=== PATIENT | male | born 1940 | race Caucasian/White ===

== ENCOUNTER 2017-02-23 20:54 | Inpatient (IN) ==
[2017-02-23] MEDS ORDERED: NS 1,000 ML IV ONE ×2 (21:27→22:33)
[2017-02-23] MEDS ORDERED: MORPHINE IV ONE ×2 (21:27→22:39)
[2017-02-23] MEDS ORDERED: ZOFRAN IV ONE (21:27)
[2017-02-23 21:30] LABS: BASO% 0.1 % (0.0-0.8); EOS# 0.01 X1000 (0.0-0.7); HEMOGLOBIN 15.7 g/dL (14.0-18.0); IMM GRAN# 0.16 X1000 (0.0-0.04); IMM GRAN% 0.5 % (0.0-0.5); LYMPH% 3.7 % (20.5-51.1); MANUAL DIFF NEEDED? NO; MCH 32.5 PG (27-31); MCHC 34.9 g/dL (33-37); MCV 93.2 FL (81-99); MONO# 3.61 X1000 (0.11-0.59); MONO% 12.3 % (1.7-9.3); NEUT% 83.4 % (42.2-75.2); PLT 309 X1000 (130-400); RBC 4.83 XMIL (4.7-6.1)
[2017-02-23 21:45] LABS: ALBUMIN 3.4 g/dL (3.5-5.0); CALCIUM 9.1 mg/dL (8.8-10.2); POTASSIUM 4.2 mmol/L (3.5-5.1); TOTAL BILIRUBIN 0.72 mg/dL (0.20-1.00); TOTAL PROTEIN 6.6 g/dL (6.3-8.3)
[2017-02-23] MEDS ORDERED: FLAGYL 500 MG/NS 500 MG/100 ML IVPB IV ONE (22:32)
[2017-02-23] MEDS ORDERED: LEVAQUIN 750 MG/D5W 750 MG/150 ML IVPB IV ONE (22:32)
--- NOTE | 2017-02-23 22:35 | PROVIDER DOCUMENTATION ---
This chart was entered by Clif Bai Scribe, acting as scribe for Zev Reed MD. HPI-Abdominal Pain/GI Problem - General Chief Complaint: Syncope Stated Complaint: syncope Time Seen by Provider: 02/23/17 21:12 Source: patient Allergies/Adverse Reactions: Patient Allergies Allergy/AdvReac Type Severity Reaction Status Date / Time Penicillins AdvReac Unknown Verified 02/23/17 21:17 Home Medications: Home Medication List Medication Instructions Recorded Confirmed Last Taken Type Aspirin 81 mg PO DAILY 10/19/15 02/23/17 02/22/17 History Benazepril/Hydrochlorothiazide 1 each PO DAILY 10/19/15 02/23/17 02/22/17 History [Benazepril-Hctz 20-12.5 mg Tab] Donepezil [Aricept] 10 mg PO DAILY 10/19/15 02/23/17 02/22/17 History Meclizine [Antivert] 25 mg PO DAILY 10/19/15 02/23/17 02/22/17 History Metoprolol [Lopressor] 50 mg PO DAILY 10/19/15 02/23/17 02/22/17 History Tiotropium Bowie Inhaler 1 puff INH RTDAILY 10/19/15 02/23/17 02/22/17 History [Spiriva] Clopidogrel Bisulfate [Plavix] 75 mg PO DAILY 02/23/17 02/23/17 02/22/17 History - History of Present Illness-ABD Nature of Presenting Problems: Pt is a 76 yom who presents to ER via EMS after several syncopal episodes today. On exam, pt revealed a 2 days hx of abdominal pain with N/V that did not resolve until 0400 today. Pt complains of N/V, abdominal distention, inability to retain fluids, and states pain is worse when coughing. Abdominal Pain Onset Location: reports: generalized abdomen Pain Radiation: reports: no radiation Quality of Pain: reports: aching, cramping, pressure, throbbing Severity in ED: reports: moderate, severe Onset/Duration: reports: 2 days ago Timing: reports: still present Associated Symptoms: reports: diaphoresis, fatigue, fever/chills (chills without fever), loss of appetite, nausea, shortness of breath (increased sob today), vomiting, weakness. denies: anxiety, arm pain, back/neck pain, chest pain, constipation, cough, diarrhea, EENT symptoms, genitourinary problems, headaches, heartburn, joint pain, trouble walking Last BM: unsure Dark Stools Present?: reports: none noticed Rectal Bleeding: reports: none Rectal Pain: reports: none Emesis Description: reports: none Review of Systems - Adult - REVIEW OF SYSTEMS - ADULT Constitutional: reports: chills, fatique. denies: fever, night sweats, weight gain, weight loss Eyes: reports: no symptoms reported Ears, Nose, Mouth & Throat: reports: no symptoms reported Cardiovascular: denies: chest pain, edema, heart murmur, irregular heart rate, orthopnea, palpitations, poor circulation, PND, syncope Respiratory: reports: shortness of breath. denies: chronic cough, cough, dyspnea on exertion, excessive sputum production, hemoptysis, pleurisy, wheezing Gastrointestinal: reports: abdominal pain, nausea, poor appetite, vomiting, other (distended). denies: hematemesis, constipation, diarrhea, difficulty swallowing, frequent heartburn, rectal bleeding Genitourinary: reports: no symptoms reported Musculoskeletal: reports: no symptoms reported Integumentary: reports: no symptoms reported Neurological: reports: no symptoms reported Psychiatric: reports: no symptoms reported Endocrine: reports: no symptoms reported Hematologic/Lymphatic: reports: no symptoms reported Allergic/Immunologic: reports: no symptoms reported All Other Systems: Reviewed and Negative Past History - Adult - PAST MEDICAL HISTORY-ADULT Review of Records: reports: Nursing Assessment Review, Medications Reviewed Cardiovascular: reports: HTN - IMMUNIZATION STATUS Childhood Immunizations: See Nurse Assessment Flu Vaccine: See Nurse Assessment Physical Exam-General - PHYSICAL EXAM-ADULT Initial Vital Signs Reviewed: Yes - CONSTITUTIONAL General Appearance: appears well, alert, mild distress, anxious - EYES Eyes: PERRL/EOMI, pink conjunctivae - HEAD, EARS, NOSE, MOUTH & THROAT HENMT: normocephalic/atraumatic, moist mucous membranes, normal ENT inspection - NECK Neck: non-tender, full range of motion, supple, normal inspection. negative: C- spine tenderness, limited range of motion, lymphadenopathy - RESPIRATORY Respiratory: chest non-tender, lungs clear, normal breath sounds, no pleuratic chest pain, no respiratory distress, no accessory muscle use. negative: respiratory distress - CARDIOVASCULAR Cardiovascular: normal peripheral pulses, regular rate, rhythm, tachycardia, other (hypotensive (99/82)). negative: bradycardia, irregularly irregular - GASTROINTESTINAL (ABDOMEN) Abdominal Exam: distended, tenderness (generalized). negative: non tender - MUSCULOSKELETAL Back Exam: normal inspection, no CVA tenderness, no vertebral tenderness. negative: CVA tenderness, muscle spasm, swelling, vertebral tenderness Extremity: normal range of motion, non-tender, normal gait, normal inspection, no pedal edema, no calf tenderness, normal capillary refill. negative: deformity, erythema, inflammation, swelling, tenderness - SKIN Integumentary: normal color, normal turgor, warm/dry. 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 negative: facial droop, focal weakness, motor weakness, sensory deficit - PSYCHIATRIC Psych/Mental Status: normal mood/affect, normal thought content, normal thought process, oriented x 3, anxious Progress - PLAN OF CARE/RESULTS Progress/Plan/Lab Results: Vital Signs - 8 hr 02/23/17 21:10 Temperature 97.4 F L Pulse Rate 112 H Respiratory Rate 21 Blood Pressure 94/69 O2 Sat by Pulse Oximetry 97 Orders Category Date Time Status CBC WITH ELECTRONIC DIFF [HEME] Stat Lab 02/23/17 21:12 Results CMP [COMPREHENSIVE METABOLIC PANEL] [CHEM] Stat Lab 02/23/17 21:12 Received Ddimer [D-DIMER] [CHEM] Stat Lab 02/23/17 21:12 Received LIPASE [CHEM] Stat Lab 02/23/17 21:12 Received TROPONIN T Stat Lab 02/23/17 21:12 Received EKG [EKG] Stat Ther 02/23/17 21:13 Ordered Result Diagrams: 02/23/17 21:12 02/23/17 21:12 - EKG 1 Time of EKG reading by physician:: 20:59 EKG Read and Signed by:: Zev Reed EKG Interpretation (*Must complete 3 of following elements*): Abnormal (RBBB; T wave abnormality, consider inferior ischemia) Rate: 122 Rhythm: Sinus tachycardia with PAC - XRAY 1 XRAY: Bilateral XRAY Study: Abdomen Impression: See EMR Report XRAY Interpretation: Possible small bowel obstruction - ER Preliminary - CONSULTS/PCP/HOSPITALIST Notification #1 *Consult/PCP/Hospitalist*: Dr. Gonzalez (Surgeon) Time Discussed: 22:30 Consult Disposition: Admit Departure - Departure Time of Disposition Decision: 22:31 DIAGNOSIS: Perforated viscus Disposition: ADMITTED INPATIENT 09 Certified Medical Emergency: Emergent Condition: Stable Referrals and Follow-Ups: Hamida English MD [Primary Care Provider] - - Critical Care Note This patient required my direct & personal management of CC.: Yes Total Time (mins): 60 Critical Care Statement: This patient required my direct personal management to treat or rule out processes, the absence of which, could potentiallly result in sudden, clinically significant life or limb threatening deterioration. This chart was documented by the indicated scribe, (Clif Bai Scribe) and accurately reflects the services I performed and decisions made by me, Zev Fatima MD, as attested by the provider's signature.
[2017-02-23] MEDS ORDERED: OFIRMEV 1000 MG/ISOTONIC SOLN 1,000 MG/100 ML BOTTLE IV ONE (22:39)
[2017-02-23] MEDS ORDERED: LEVOPHED 8 MG in D5 1/2 NS 250 ML IV SCH (23:00)
--- NOTE | 2017-02-24 00:32 | HISTORY AND PHYSICAL ---
DATE OF ADMISSION: 02/24/2017 HISTORY OF PRESENT ILLNESS: This is a 76-year-old male with a history of critical aortic stenosis, who presents with acute onset of nausea, vomiting, abdominal pain that started around 6 p.m. this last evening, prompting admission to the emergency department. He was tachycardic when he came in, with some marginal blood pressures. He started fluid resuscitation. CT scans showed a large amount of free intraperitoneal fluid, no free air, and some questionable pneumatosis. Lactic acid was 10. He states that he has been in the usual state of health until this time. PAST MEDICAL HISTORY: 1. Coronary artery disease. 2. Tobacco abuse, likely COPD. 3. Critical aortic stenosis that has not been repaired yet. 4. Hypertension. 5. Hyperlipidemia. 6. Peripheral vascular disease. 7. Carotid artery disease. 8. Dementia. PAST SURGICAL HISTORY: He has had an inguinal hernia repair. SOCIAL HISTORY: Quit smoking approximately 6 months ago. Denies alcohol abuse. No IV drugs. FAMILY HISTORY: Negative for cancer. REVIEW OF SYSTEMS: Ten-point negative, other than what is mentioned in the HPI. PHYSICAL EXAMINATION: Vital Signs: Temperature is 97.4 degrees. Pulse is 110s, 113 currently. Blood pressure 109/75, oxygen saturation 93% on room air. He is 5 feet 8 inches, and 125 pounds. General: This is an elderly, chronically ill-appearing white male, somewhat cachectic. Cardiovascular: Sinus tachycardia. There is no median sternotomy scar. Pulmonary: No increased work of breathing. He is stable on room air. Abdomen: Distended, is rigid. There is willis peritonitis and in all quadrants. I do not feel any inguinal hernia. There is no umbilical hernia. He had what appeared to be coffee-ground emesis while I was examining him. I do not see any prominent abdominal wall varicosities. A 2+ left radial pulse. Otherwise, the extremities are well-perfused. No lower extremity edema. Skin: There is no scleral icterus, and there is no jaundice noted on skin exam. Musculoskeletal: Does have some muscle atrophy throughout. LABORATORY STUDIES: White count is 29, hematocrit 45, platelets are 309. D-dimer is 4.83. Sodium is 130, creatinine is 1.7. Glucose 288. Bilirubin is 0.72, AST 16, ALT 11, alkaline phosphatase 72, albumin is 3.4, lactic acid is 10.5, lipase 11. Troponins are 0.021. ASSESSMENT AND PLAN: This is a 76-year-old male who presents with CT and exam findings concerning for ischemic bowel. He has willis peritonitis and a moderate amount of free fluid. Given exam and all of these constellation of findings, I have recommended exploratory laparotomy. We discussed the possibility of bowel resection, the possibility of temporary abdominal closure, the possibility of colostomy, and all indicated procedures to correct his current problem. He understands that he is at significant risk, given his severe cardiac disease. He takes Plavix. We will accept the risk of bleeding obviously for this emergent situation. His severe aortic stenosis has not been repaired, and coronary disease as well. I spoke with him in detail about the plans of surgery. Both his daughter and his sister are here with him. They understand and consent to the procedure and want to proceed. We discussed the possibility that he could require a second-look operation, and be temporary closed and remain intubated tonight. He has received IV antibiotics. Currently, we will place an NG tube and a Zeng catheter. Plan to place a central line and an arterial line at the time of surgery, and he will most definitely need ICU after this. cc: Adriana Gonzalez MD
[2017-02-24] MEDS ORDERED: DIPRIVAN 1% 1,000 MG/100 ML BOTTLE ONE (01:40)
[2017-02-24 02:13] LABS: ALLEN TEST YES; BE -4.1 mmoll (-3.0-3.0); BLOOD TYPE ARTERIAL; DRAW SITE R RADIAL; METHB 1.7 % (0.0-1.5); O2(CT) 16.8 mL/dL (15.0-23.0); PCO2(98.6) 47 mmHg (35-45); PO2(98.6) 120 mmHg (60-100); SAMPLE BLOOD; SAO2 99.5 % (95.0-100.0); SRATE 14 BPM; THB 12.3 g/dL (11.5-17.4); TVOL 600 mL; pH(98.6) 7.29 (7.35-7.45)
[2017-02-24 02:14] LABS: MODALITY VENTILATOR
[2017-02-24] MEDS: DIPRIVAN 1% 1,000 MG/100 ML BOTTLE IV SCH ×4 (02:30→22:07)
[2017-02-24] MEDS ORDERED: FENTANYL ONE (02:47)
[2017-02-24] MEDS ORDERED: VERSED ONE (02:47)
[2017-02-24] MEDS: LR 1,000 ML IV SCH ×3 (03:00→18:17)
[2017-02-24] MEDS ORDERED: SODIUM CHLORIDE 0.9% INJ ONE (03:02)
[2017-02-24 03:37] LABS: MANUAL DIFF NEEDED? NO
[2017-02-24 03:41] LABS: BASO% 0.1 % (0.0-0.8); EOS# 0.01 X1000 (0.0-0.7); EOS% 0.1 % (0.0-10.0); HEMATOCRIT 34.9 % (42.0-52.0); HEMOGLOBIN 12.3 g/dL (14.0-18.0); IMM GRAN# 0.03 X1000 (0.0-0.04); IMM GRAN% 0.2 % (0.0-0.5); LYMPH# 0.71 X1000 (1.2-3.4); LYMPH% 4.8 % (20.5-51.1); MCH 32.8 PG (27-31); MCHC 35.2 g/dL (33-37); MCV 93.1 FL (81-99); MONO% 12.9 % (1.7-9.3); MPV 10.1 FL (7.4-10.4); NEUT% 81.9 % (42.2-75.2); PLT 200 X1000 (130-400); RBC 3.75 XMIL (4.7-6.1)
[2017-02-24 03:48] LABS: INR 1.08; PROTIME 11.4 Seconds (9.2-11.7); PTT 30.3 Seconds (22.0-36.0)
[2017-02-24 03:55] LABS: AGAP 13; BUN 29 mg/dL (8-22); CALCIUM 7.1 mg/dL (8.8-10.2); CHLORIDE 100 mmol/L (98-107); COSMO 273; POTASSIUM 4.6 mmol/L (3.5-5.1); SODIUM 133 mmol/L (136-145); TCO2 20 mmol/L (25-35)
--- NOTE | 2017-02-24 04:23 | OPERATIVE NOTE ---
PROCEDURE DATE: 02/24/2017 PREOPERATIVE DIAGNOSES: 1. Bowel ischemia. 2. Small bowel ischemia. PROCEDURES PERFORMED: 1. Exploratory laparotomy. 2. Small bowel resection of 105 cm of distal small bowel. 3. Right femoral central line placement. 4. Temporary abdominal closure. ESTIMATED BLOOD LOSS: 100 mL. SPECIMENS: Distal small bowel. DRAINS: None. ANESTHESIA: General. INDICATIONS: This is a 76-year-old male who presented with approximately 4 or 5 hours of severe nausea, vomiting, and severe diffuse abdominal pain. CT scan showed a high-grade bowel obstruction with pneumatosis. He had willis peritonitis on exam. Lactic acidosis of 10.5. He also has a history of critical aortic stenosis and was in atrial fibrillation on arrival. OPERATIVE FINDINGS: There was 105 cm of frankly necrotic small bowel spanning up to within about 4 cm of the ileocecal valve. There was no evidence of perforation but there was a large volume of hemorrhagic ascites within the abdomen. The liver was slightly nodular but it was soft. The gallbladder appeared chronically inflamed with thickened noel. The stomach was normal. The proximal small bowel to the level of demarcation was very dilated. There were some areas that were dusky but no willis necrosis noted. The colon, ascending, transverse, descending, and rectum were all well perfused and decompressed. There was a strong pulse within the SMA. It was calcified but there was a strong pulse here. There was good Doppler signal noted in the distal small bowel mesentery. There was also a Doppler signal audible over the small bowel mucosa. OPERATIVE NOTE: Risks, benefits, and alternatives were discussed. The patient and family consented to the procedure. He was seen in the preoperative area. Surgery to be performed was confirmed. He was taken to the operating room, placed in the supine position. An arterial line was placed with anesthesia prior to induction of anesthesia. He had a Zeng catheter and NG tube already in place. Scheduled antibiotics were being administered. After induction of general anesthesia, there were no complications, abdomen was prepped down to the level of his groins with chlorhexidine solution, draped in the usual fashion. After time-out was performed, we placed a pre-flushed 7-Croatian triple lumen central line in the right femoral vein. We palpated the artery and accessed the vein medially on the first pass. Dark nonpulsatile venous blood was noted. We threaded the guidewire, removed the needle, made a skin bria, dilated the tract, and placed the catheter using Seldinger technique. We removed the wire, placed sterile Luer Lock caps. All ports withdrew blood and flushed easily. We secured it with a silk suture and excluded this from the field. We passed all sterile tubing to anesthesia and they used this through the case. At this point, we made a xiphoid, pubic incision down the midline. Carried it with electrocautery down to the fascia and the fascia along the midline elevated, the peritoneum entered sharply. There was no plummer of air noted but there was quite a lot amount of hemorrhagic ascites. We extended our incision cephalad and inferiorly. There was frankly necrotic bowel noted. We eviscerated all the small intestine and ran it from the ligament of Treitz distally to the ileocecal valve, identifying the areas of demarcation. There was a single omental band to this area. It was unclear if this was causing a volvulus type picture or if this was most likely a cardioembolic source causing necrosis. However, there was evidence of thrombosis of the vessels within the mesentery. This was all frankly necrotic. Using the JULIANE blue load stapler, we divided proximally and distally, and passed this off as specimen. We then divided the mesentery with a LigaSure Impact device. There was no bleeding noted here. We ran the bowel, milking the enteric contents back to the stomach to be decompressed by the NG tube. We confirmed its position and we examined the colon. After satisfactory that we had good source control and resected all the frankly necrotic bowel, we copiously irrigated the abdomen with warm saline. We evaluate for possible anastomosis but the patient was becoming hypothermic with a temperature of 35 degrees Celsius. He was acidotic in the emergency department. Urine output was marginal. He was not requiring vasopressors but we elected to temporarily close his abdomen and come back for 2nd look to re-evaluate the areas of the proximal small bowel that were of concern and to create a formal anastomosis. This most likely will require an ileal cecectomy to create a small bowel to ascending colon anastomosis. There was a good pulse noted within the right colon mesentery also. We placed omentum down covering the bowel after placing it back into the neutral position. The NG tube was in good position. We placed a 10-10 drape over the abdominal contents and closed the skin with a running #1 Prolene suture, applied gauze and Medipore tape dressing. He tolerated the procedure relatively well. Was transferred to ICU for ongoing resuscitation. I had spoken with the family. I plan to go back to the operating room in 24 hours after his resuscitation for a 2nd look and establishment of continuity. Counts were correct at the conclusion of the case with the exception of the 10-10 drape that was intentionally left in the abdomen. cc: MD Salvatore Márquez MD
[2017-02-24 04:50] LABS: ALLEN TEST YES; BE -0.7 mmoll (-3.0-3.0); BLOOD TYPE ARTERIAL; O2(CT) 17.5 mL/dL (15.0-23.0); PCO2(98.6) 35 mmHg (35-45); PO2(98.6) 160 mmHg (60-100); SAMPLE BLOOD; SAO2 96.1 % (95.0-100.0); SRATE 14 BPM; THB 12.8 g/dL (11.5-17.4); TVOL 600 mL; pH(98.6) 7.43 (7.35-7.45)
[2017-02-24 04:51] LABS: MODALITY VENTILATOR
[2017-02-24] MEDS: LOPRESSOR IV SCH ×4 (05:29→19:34)
[2017-02-24] MEDS: FLAGYL 500 MG/NS 500 MG/100 ML IVPB IV SCH ×4 (05:52→23:58)
[2017-02-24 06:37] LABS: DRAW SITE R RADIAL
--- NOTE | 2017-02-24 06:42 | EKG Report ---
Test Performed on : 02/23/2017 8:59:18 PM Test Reason : SYNCOPE Blood Pressure : / mmHG Vent. Rate : 122 BPM Atrial Rate : 153 BPM P-R Int : 140 ms QRS Dur : 134 ms QT Int : 368 ms P-R-T Axes : 050 066 033 degrees QTc Int : 524 ms Sinus tachycardia. with premature atrial complexes. Right bundle branch block T wave abnormality, consider inferior ischemia Abnormal ECG When compared with ECG of 23-OCT-2015 08:26, premature atrial complexes. are now present Vent. rate has increased BY [address] now depressed in Anterior leads T wave inversion now evident in Anterior leads Unconfirmed Result
[2017-02-24] MEDS ORDERED: SODIUM CHLORIDE 0.9% 10 ML ONE ×2 (07:48→19:40)
[2017-02-24] MEDS ORDERED: LEVOPHED 8 MG in D5 1/2 NS 250 ML IV SCH (08:00)
[2017-02-24] MEDS ORDERED: CALCIUM GLUCONATE IV PUSH ONE (08:08)
[2017-02-24] MEDS: LEVOPHED 8 MG in D5 1/2 NS 250 ML IV SCH ×3 (08:09→23:58)
[2017-02-24] MEDS: PROTONIX IV SCH ×2 (08:10→20:05)
--- NOTE | 2017-02-24 08:51 | Diag Imaging Result Document ---
PROCEDURE NAME: FLAT/UPRIGHT ABD/1 VIEW CHEST - 02/23/2017 FRONTAL CHEST X-RAY AND 2 VIEWS OF THE ABDOMEN: COMPARISON: None. FINDINGS: There is some ill-defined reticulonodular infiltrate in the right upper lobe laterally. Heart size is top normal. No new pneumothorax or significant effusion. There are several abnormally gas-distended loops of small bowel in the abdomen measuring up to 4.4 cm. No colon or rectal gas. IMPRESSION: 1. Slight infiltrate in the right upper lobe, nonspecific. 2. High-grade small bowel obstruction.
--- NOTE | 2017-02-24 08:52 | Diag Imaging Result Document ---
PROCEDURE NAME: CHEST-PORTABLE - 02/23/2017 PORTABLE CHEST X-RAY AT 2330 HOURS: COMPARISON: 2135 hours. FINDINGS: There is a new nasogastric tube with the tip in the stomach. Stable small infiltrate in the right upper lobe. IMPRESSION: Good nasogastric tube placement.
--- NOTE | 2017-02-24 08:52 | Diag Imaging Result Document ---
PROCEDURE NAME: CHEST-PORTABLE - 02/24/2017 PORTABLE CHEST X-RAY: COMPARISON: 02/23/2017 at 2330 hours. FINDINGS: There is an endotracheal tube and nasogastric tube in good position. Stable small right upper lobe infiltrate. There is mild retrocardiac consolidation/atelectasis which has worsened since prior. IMPRESSION: See findings.
--- NOTE | 2017-02-24 09:00 | Diag Imaging Result Document ---
PROCEDURE NAME: ABDOMEN/PELVIS W/O CONTRAST - 02/23/2017 CT OF THE ABDOMEN WITHOUT CONTRAST: COMPARISON: There are no previous studies available for comparison. FINDINGS: There is ill-defined opacity with air bronchogram posteriorly in the left lower lobe which does not extend beyond 4 cm in size. There are additional foci of somewhat nodular opacity present inferior to this in the posteromedial left lower lobe. There are linear opacities in both costophrenic sulci which may be due to fibrosis or atelectasis. The possibility of mild pneumonia should be considered. There is ascites. The spleen contains granulomata but is not enlarged measuring less than 9.3 cm in transverse dimension. There is bilateral adrenal hyperplasia. There appears to be at least one small stone layering dependently in the gallbladder as well as some sludge. There are granulomata in the liver. The liver is slightly nodular in contour suggesting cirrhosis. There is no evidence of stones or hydronephrosis in the kidneys. There is stool and gas in the colon without evidence of dilatation. There are multiple small bowel loops demonstrating marked dilatation. There appears to be a transitional zone in the distal ileum. There is no evidence of free intra-abdominal or pelvic gas. The urinary bladder is not distended. There are a few scattered diverticula in the colon. There is extensive atherosclerotic calcification in the aorta and its branches including the proximal superior mesenteric artery and both renal arteries. There are severe degenerative disk changes in the lumbar spine. IMPRESSION: Small bowel obstruction. Ascites. Left lower lobe pneumonia vs pneumonitis.
[2017-02-24] MEDS ORDERED: NIMBEX 2 MG DOSE ONE (09:03)
[2017-02-24] MEDS ORDERED: NS 1,000 ML ONE (09:03)
[2017-02-24] MEDS ORDERED: EXTENSION SET 32 IN 4522 ONE (09:03)
[2017-02-24] MEDS ORDERED: NS 500 ML ONE (09:03)
[2017-02-24] MEDS ORDERED: BLOOD SET Y-TYPE 8949 ONE (09:03)
[2017-02-24] MEDS ORDERED: ANESTHESIA PB SET 88 IN 5742 ONE (09:03)
[2017-02-24] MEDS ORDERED: SODIUM CHLORIDE 0.9% 20 ML ONE (09:03)
[2017-02-24] MEDS ORDERED: LR 3,000 ML ONE (09:03)
[2017-02-24] MEDS ORDERED: QUELICIN (DOSE) ONE (09:03)
[2017-02-24] MEDS ORDERED: NEO-SYNEPHRINE ONE (09:03)
[2017-02-24] MEDS ORDERED: AMIDATE ONE (09:03)
[2017-02-24] MEDS ORDERED: XYLOCAINE-MPF 2% ONE (09:03)
[2017-02-24] MEDS: FENTANYL IV PRN ×6 (09:32→22:08)
[2017-02-24] MEDS ORDERED: SODIUM BICARBONATE 8.4% 150 MEQ in D5W 1,000 ML IV SCH (10:02)
[2017-02-24] MEDS: DUONEB (A & A) INH SCH ×4 (11:35→22:42)
--- NOTE | 2017-02-24 14:05 | CONSULTATION ---
DATE OF CONSULTATION: 02/24/2017 REASON FOR CONSULTATION: Cardiology was consulted for atrial fibrillation, aortic stenosis. The patient is a 76-year-old gentleman who is intubated and sedated. History was obtained from the chart. Patient came with nausea, vomiting, and was admitted to the emergency room. He was tachycardic and started with fluid resuscitation. CT scan showed large amount of intraperitoneal fluid. Patient a small-bowel ischemia and the procedure performed was exploratory laparotomy with small-bowel resection of 105 cm distal bowel. Patient is on pressors of Levophed. His heart rate is irregular at 120-100 beats per minute, atrial fibrillation. REVIEW OF SYSTEMS: Could not be obtained from the patient. PAST MEDICAL HISTORY: 1. Critical aortic stenosis. Patient in the past had refused surgery and was deemed not a good surgical candidate for TAVR This was in 2016. Evaluated at [facility]. 2. Chronic obstructive pulmonary disease. 3. Hypertension. 4. Dementia. 5. Tobacco abuse with 50 pack history of smoking. 6. Diabetes. 7. Hypercholesterolemia. HOME MEDICATIONS: Had included aspirin, Plavix, lisinopril 10, metoprolol 25, Synthroid 125, Glucophage 500, Lipitor 80, and multivitamins. This is from 12/27/2015 when he had seen Cardiology in [place]. ALLERGIES: He is allergic to penicillin. PHYSICAL EXAMINATION: Vital Signs: Blood pressure was 95/68, heart rate 120. Neck: Jugular sinus pressure could not be assessed. Cardiovascular: First and second heart sounds were heard. There is ejection systolic murmur. Respiratory System: Bibasilar wheeze. Abdomen: Recent surgery. Central nervous System: Could not be assessed. ASSESSMENT AND PLAN: Mr. Connor Mac is a 76-year-old, gentleman with severe aortic stenosis, chronic obstructive pulmonary disease, hypertension, diabetes, and hypercholesterolemia, who is at admitted with an acute abdomen. Underwent small bowel resection for ischemic bowel. His electrocardiogram revealed atrial fibrillation. He is on pressors at the present time. RECOMMENDATIONS: 1. He had an echocardiogram. We will look at that shortly. 2. His admission electrocardiogram revealed atrial fibrillation and probably the ischemic bowel may have been given a clot to the small bowel causing his problems. Regardless, for rate control at the present time, we will give him digoxin 0.25 mg IV and replete that and put him on digoxin 0.125 on a daily basis. 3. He needs to be anticoagulated. At discharge we will plan on that; however, we cannot as he underwent surgery. 4. As far as aortic stenosis is concerned, he has been evaluated and there was no discharge diagnosis of atrial fibrillation from [place] last year; however, this atrial fibrillation may have been ongoing. I do not have another electrocardiogram to compare that to in the last 6 months up to a year. As far as aortic stenosis concerned, we will continue with his current home medications/ 5. His hypertensive medications held because of hypotension at the present time. Diabetes management per blood sugar values. Thank you for the consult. We will follow hospital course. 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 He is also on antibiotics for pneumonia. I had a detailed discussion with patient's family as well. Thank you for the consult. cc: MD Salvatore Childress MD MTDD
[2017-02-24] MEDS: LANOXIN IV SCH ×2 (14:33→17:35)
--- NOTE | 2017-02-24 15:26 | CONSULTATION ---
DATE OF CONSULTATION: 02/24/2017 REQUESTING PHYSICIAN: Dr. Ronni Gonzalez. REASON FOR CONSULTATION: Respiratory failure status post emergent abdominal surgery for ischemic bowel. HISTORY OF PRESENT ILLNESS: Mr. Mac is a 76-year-old white male with greater than 50 pack year history for tobacco (nonsmoker since for 6 months), critical aortic stenosis (patient elected not to have repaired despite cardiology recommendations), peripheral vascular disease with known carotid artery disease, who presented to the emergency room with abdominal pain. CT scan revealed small bowel obstruction along with left lower lobe pneumonia. The patient was overtly toxic with peritoneal signs on examination and a lactate of greater than 10. The patient was taken to the operating room and 105 cm of necrotic, ischemic small bowel was surgically removed. The patient was temporarily closed with anticipation of a second-look surgery. The patient is now in the intensive care unit. He remains on vasopressors and mechanical ventilation. PAST MEDICAL HISTORY: 1. COPD with recent discontinuation of tobacco. 2. Critical aortic stenosis with aortic valve area on cardiac catheterization 0.91 cm2 October 2015. 3. Nonocclusive coronary artery disease on cardiac catheterization 10/23/2015. 4. Carotid artery disease. Previous recommendations have been to delay carotid surgery until his aortic stenosis has been repaired. 5. Hypertension. 6. Dementia but severity not documented. 7. Hypertension. SOCIAL HISTORY: Prior tobacco use. Stopped smoking 6 months ago. Has an attentive daughter. FAMILY HISTORY: Noncontributory to our current presentation. REVIEW OF SYSTEMS: Cannot be obtained. PHYSICAL EXAMINATION: General: Reveals a thin white male who appears his stated age, on mechanical ventilation. He will squeeze hands to command. He is currently on Levophed at 12 mcg. CVP measured at 6 cm of water. Vital Signs: Blood pressure 103/70, heart rate 116, respiratory rate 16, oxygen saturation 100%. HEENT: Pupils are equal and reactive. Oropharynx, evaluation is limited. Endotracheal tube in place. Neck: Supple. Chest: Reveals mild prolonged expiratory phase with occasional rhonchi. No wheezing identified. Cardiac: Increased rate with a 2 to 3/6 systolic ejection murmur most prominent right upper sternal border but echoes throughout the precordium and into the neck. Abdomen: Soft with midline surgical incision in place. Extremities: Cool to the touch. LABORATORIES: Chest x-ray reveals small right upper lobe infiltrate with consolidation at the left base. Electrolytes: Sodium 133, potassium 4.6, chloride 100, bicarbonate 20, anion gap 13, BUN 29, creatinine 1.1. Arterial blood gas, pH 7.43, pCO2 of 35, PO2 of 160 with a lactate which has now normalized. IMPRESSION: This is a 76-year-old with chronic obstructive pulmonary disease, peripheral vascular disease, critical aortic stenosis, who has developed ischemic bowel requiring surgical resection, acute renal failure which is improving with resuscitation, acute hypoxemic respiratory failure, and pneumonia in the left lower lobe. Aspiration related to acute abdominal event is suspected. Clinically, he has significantly improved following surgical resection and resuscitation. Overall his prognosis is guarded given his COPD, vascular disease, and critical aortic stenosis. RECOMMENDATIONS: 1. Continue volume resuscitation. CVP currently 6 and he remains on vasopressors. 2. Continue full ventilatory support in anticipation of a second look surgery. 3. Cautious use of bronchodilators. If heart rate becomes less controlled, albuterol will be discontinued. 4. Await sputum culture results. 5. Continue gastric acid suppression. 6. Begin DVT prophylaxis as soon as general surgery will allow. cc: MD Salvatore Galan MD
[2017-02-24] MEDS ORDERED: CORDARONE 150 MG/D5W 150 MG/100 ML IV.SOLN IV ONE (17:53)
[2017-02-24] MEDS: LOVENOX SUBQ SCH (17:55)
[2017-02-24] MEDS ORDERED: CORDARONE 360 MG/D5W 360 MG/200 ML IV.SOLN IV ONE (18:00)
--- NOTE | 2017-02-24 18:01 | PROGRESS NOTE ---
DATE: 02/24/2017 SUBJECTIVE: He did require some Levophed overnight but otherwise was comfortable and following commands. Intermittently in atrial fibrillation. Urine output down trending, it is 30 an hour but it has been marginal this morning. OBJECTIVE: Vital Signs: Temperature is 99.4 degrees, pulse in the low 100s to 1-teens. Blood pressure 103/70. He is on 15 mcg of Levophed. This morning, oxygen saturations on 100% on 50% FiO2 with PEEP of 5. General: He is sedated, NG tube is putting out bilious output. Abdomen: Soft, mildly distended but not tense. His dressing is clean, dry, and intact. LABORATORY DATA: Review of the lab. White count down to 14, hematocrit 34, INR is 1.08, ABG is 7.43, 35, 126, and 24. Lactic acid is down to 2.7. Creatinine is 1.1. Electrolytes are okay. Chest x-ray shows good position of the endotracheal tube, with good expansion of his air field. ASSESSMENT/PLAN: A 76-year-old male, status post emergent operation last night with bowel resection for a small bowel ischemia. It is possible this is related to a cardioembolic process given his atrial fibrillation and the aortic stenosis. Checking an echocardiogram today, we will continue his resuscitation. Dr. Cabrera has ordered him a L of fluid. I agree with this given the marginal CVP and is increasing pressor requirements and we will watch him. I do plan to go to surgery tomorrow at least for a wash out. If he is off pressors we may be able to establish continuity but I do worry that he could develop more ischemic bowel, given the findings at the time of the original surgery. I have discussed this with the family. We will continue to monitor him and resuscitate him tomorrow and plan for surgery. Gas exchange seems adequate as does his renal function. His creatinine is improving. He is on antibiotics. We will need to keep him comfortable, strict NPO as his bowel is in discontinuity, at this point. cc: MD Salvatore Márquez MD
--- NOTE | 2017-02-24 18:22 | ECHO REPORT ---
ORDER DATE: 02/24/2017 ECHOCARDIOGRAM: MEASUREMENTS: Left ventricular end-diastolic diameter 4.9, left atrium 3.8, aortic root 2.9. SUMMARY: 1. Technically difficult study due to limited acoustic window quality. 2. Fibrocalcific changes of aortic valve demonstrated. Aortic valve not well imaged. Peak gradient across aortic valve is 85 mmHg with a mean gradient of 42 mmHg suggesting severe aortic stenosis. There is mild aortic regurgitation. Moderate mitral annular calcification is demonstrated with mild mitral regurgitation. Tricuspid valve without structural abnormality with mild tricuspid regurgitation. Estimated systolic PA pressure by Doppler is 45 mmHg. Pulmonic valve not well demonstrated. The aortic root is normal size. 3. Normal left chamber size with mild concentric left hypertrophy is suggested. Estimated left ventricular ejection fraction appears to be at least 50%. Regional wall motion analysis is challenging given limitations study. Doppler suggests grade 1 left ventricular diastolic dysfunction. Left atrium appears mildly enlarged on 2-dimensional images. Right atrium and right ventricle are of normal size with grossly preserved right ventricular systolic function. 4. Small posterior pericardial effusion. 5. Inferior vena cava not demonstrated. 6. Sinus rhythm during study. CONCLUSIONS: 1. Technically difficult study. 2. Severe calcific aortic stenosis with mild aortic regurgitation. 3. Moderate mitral annular calcification with mild mitral regurgitation. 4. Mild tricuspid regurgitation with [id number] pulmonary hypertension by Doppler. 5. Mild concentric left hypertrophy with estimated left ventricular ejection fraction at least 50%. 6. Doppler suggests grade 1 left ventricular diastolic dysfunction. 7. Small posterior pericardial effusion. 8. Mild left atrial enlargement. cc: MD Adriana Cota MD Rodney W. Harney, MD
[2017-02-24] MEDS: NEO-SYNEPHRINE 50 MG in NS 250 ML IV SCH (19:21)
[2017-02-24] MEDS: OFIRMEV 1000 MG/ISOTONIC SOLN 1,000 MG/100 ML BOTTLE IV PRN (19:41)
[2017-02-24] MEDS: LEVAQUIN 750 MG/D5W 750 MG/150 ML IVPB IV SCH (22:11)
[2017-02-25] MEDS ORDERED: CORDARONE 540 MG in D5W 289.2 ML IV ONE ×2
[2017-02-25] MEDS: LOPRESSOR IV SCH ×4 (01:02→19:26)
[2017-02-25] MEDS: DIPRIVAN 1% 1,000 MG/100 ML BOTTLE IV SCH ×5 (02:20→22:00)
[2017-02-25] MEDS: FENTANYL IV PRN ×6 (02:21→23:56)
[2017-02-25] MEDS: LR 1,000 ML IV SCH ×4 (03:13→19:33)
[2017-02-25] MEDS: DUONEB (A & A) INH SCH ×6 (03:18→23:05)
[2017-02-25 04:26] LABS: ALLEN TEST YES; BE 6.9 mmoll (-3.0-3.0); BLOOD TYPE ARTERIAL; DRAW SITE R RADIAL; METHB 1.3 % (0.0-1.5); O2(CT) 17.8 mL/dL (15.0-23.0); PCO2(98.6) 38 mmHg (35-45); PO2(98.6) 81 mmHg (60-100); SAMPLE BLOOD; SAO2 97.6 % (95.0-100.0); SRATE 10 BPM; THB 13.3 g/dL (11.5-17.4); TVOL 700 mL; pH(98.6) 7.51 (7.35-7.45)
[2017-02-25 04:27] LABS: MODALITY VENTILATOR
[2017-02-25] MEDS: LEVOPHED 8 MG in D5 1/2 NS 250 ML IV SCH ×2 (05:13→10:32)
[2017-02-25] MEDS: FLAGYL 500 MG/NS 500 MG/100 ML IVPB IV SCH ×4 (05:14→22:01)
[2017-02-25 05:16] LABS: HEMATOCRIT 31.5 % (42.0-52.0); HEMOGLOBIN 10.7 g/dL (14.0-18.0); MCH 32.5 PG (27-31); MCV 95.7 FL (81-99); MPV 10.3 FL (7.4-10.4); RBC 3.29 XMIL (4.7-6.1)
[2017-02-25 05:34] LABS: MAGNESIUM 1.8 mg/dL (1.5-2.7)
[2017-02-25 05:39] LABS: AGAP 13; ALKALINE PHOSPHATASE 44 U/L (32-122); BUN 18 mg/dL (8-22); CALCIUM 8.2 mg/dL (8.8-10.2); CHLORIDE 97 mmol/L (98-107); COSMO 279; GOT 24 U/L (10-34); GPT 11 U/L (10-44); POTASSIUM 3.4 mmol/L (3.5-5.1); SODIUM 137 mmol/L (136-145); TCO2 27 mmol/L (25-35); TOTAL BILIRUBIN 0.26 mg/dL (0.20-1.00); TOTAL PROTEIN 4.7 g/dL (6.3-8.3)
--- NOTE | 2017-02-25 06:50 | EKG Report ---
Test Performed on : 02/25/2017 05:44:40 AM Test Reason : afib Blood Pressure : / mmHG Vent. Rate : 111 BPM Atrial Rate : 111 BPM P-R Int : 216 ms QRS Dur : 140 ms QT Int : 362 ms P-R-T Axes : 063 035 -58 degrees QTc Int : 492 ms Sinus tachycardia. with 1st degree AV block. Right bundle branch block T wave abnormality, consider inferior ischemia Abnormal ECG When compared with ECG of 23-FEB-2017 20:59, (Unconfirmed) premature atrial complexes. are no longer present NV interval has increased T wave inversion less evident in Inferior leads Nonspecific T wave abnormality now evident in Lateral leads Confirmed by Melanie PADGETT, Alvaro Dang ([id number]) on 02/25/2017 6:50:49 AM
--- NOTE | 2017-02-25 08:11 | Diag Imaging Result Doc PS360 ---
CHEST-PORTABLE - 02/25/2017 6:00 AM INDICATION: Respiratory failure COMPARISON: 02/24/2017 FINDINGS: Stable endotracheal tube and nasogastric tube in good position. There is decrease in the reticulonodular infiltrate in the lateral right upper lobe. Stable infiltrate at the left lower lobe. Heart size remains top normal. IMPRESSION: Improvement in the right upper lobe infiltrate. Otherwise stable exam. Electronically signed by Manuel Palmer 02/25/2017 7:47 AM
[2017-02-25] MEDS ORDERED: SODIUM CHLORIDE 0.9% 10 ML ONE ×2 (08:20→19:29)
[2017-02-25] MEDS: LANOXIN IV SCH (08:23)
[2017-02-25] MEDS: PROTONIX IV SCH ×2 (08:24→20:02)
[2017-02-25] MEDS ORDERED: NS 500 ML ONE (08:59)
[2017-02-25] MEDS ORDERED: NS 1,000 ML IV ONE (09:29)
[2017-02-25] MEDS: ALBUMIN 25% IV SCH ×3 (10:28→22:00)
[2017-02-25] MEDS ORDERED: NORCURON ONE (13:24)
[2017-02-25] MEDS ORDERED: LR 3,000 ML ONE (13:24)
[2017-02-25] MEDS ORDERED: NEO-SYNEPHRINE ONE (13:24)
[2017-02-25] MEDS ORDERED: ANESTHESIA PB SET 88 IN 5742 ONE (13:24)
[2017-02-25] MEDS ORDERED: PIGGYBACK SET 7393 ONE (13:24)
--- NOTE | 2017-02-25 13:43 | PROGRESS NOTE ---
DATE: 02/25/2017 SUBJECTIVE: Increasing pressure requirement last night now 2nd agent added. Otherwise he is comfortable with addition of fentanyl and propofol. OBJECTIVE: Vital signs: This morning on exam temperature 97.9 degrees. No fevers overnight. Pulse has ranged from low 100s to 120s, blood pressure 119/59, O2 saturation 99 % on 40% FiO2 with PEEP of 5. General: He is sedated. Abdomen: Is soft, nontender, nondistended. Dressing is clean, dry, and intact. Extremities: There is no lower extremity edema. LABORATORY STUDIES: I reviewed his labs. White count is 9 from 14, hematocrit 31. ABG 7.51, 38, 81, 30. Glucose is 159, creatinine 0.8, lactic acid down to 1.7. Chest x-ray looks okay. ASSESSMENT: A 76-year-old male left in discontinuity after bowel resection for small bowel ischemia. Is felt this is related to his atrial fibrillation potentially. He has had an echocardiogram that shows severe calcific aortic stenosis with mild aortic regurgitation, left ventricular hypertrophy, EF 50%. Small pericardial effusion. No obvious mural clot. PLAN: I talked to the family. Will go to the operating room today for abdominal washout and exploration. Discussed possibility finding more ischemic bowel and need resection. I have also discussed that we will unlikely create anastomosis today given that he is continuing to require 2 pressors. Will continue with his fluid resuscitation, electrolyte repletion. He is on antibiotics. Discussed extensively with the family that is a very grave prognosis for this gentleman with severe heart disease. He is on Levophed, amiodarone, Avery- Synephrine, digoxin. cc: MD Salvatore Márquze MD [facility]
--- NOTE | 2017-02-25 14:06 | OPERATIVE NOTE ---
PROCEDURE DATE: 02/25/2017 PREOPERATIVE DIAGNOSIS: Bowel ischemia with temporary abdominal closure, status post bowel resection. POSTOPERATIVE DIAGNOSIS: Bowel ischemia with temporary abdominal closure, status post bowel resection. PROCEDURE PERFORMED: Reentry exploratory laparotomy and abdominal washout with temporary abdominal closure. SURGEON: Adriana Gonzalez MD ESTIMATED BLOOD LOSS: 10 mL. SPECIMENS: None. ANESTHESIA: General. INDICATIONS: This is a 76-year-old male with critical aortic stenosis, coronary disease, and atrial fibrillation, who presented with a large segment of bowel ischemia and necrosis 2 days ago. He was critically ill at the time. We did a damage control operation, temporarily closed the abdomen, and transferred him back to the ICU for ongoing resuscitation. He has done reasonably well. He was almost weaned off pressors, but he had increased pressure requirements overnight. As such, we need to go back and watch his abdomen and reexplore. The risks, benefits, and alternatives were discussed. The patient then consented to the procedure. FINDINGS: The stomach, the remainder of the small bowel and colon were all well perfused with no evidence of ongoing necrosis. There was some thickening and edema around the gallbladder. Otherwise, no acute abnormalities. OPERATIVE NOTE: He was taken to the operating room on the ventilator from the ICU and placed in supine position. His general anesthesia was induced. He was on 2 pressors, Levophed and phenylephrine. The abdomen was prepped with Betadine solution and draped in the usual fashion. He had an arterial line, central line, and Zeng catheter with NG tube already in place. After a time-out was performed, we removed the old Prolene suture and opened his abdomen. We removed the 10/10 drape that was in place and eviscerated the small bowel and ran it in its entirety. It was somewhat dilated. We milked all the enteric contents and succus back to the stomach. We decompressed this out of the NG tube with good success here. There was no evidence of succus or purulence within the abdomen. The bowel was well perfused. The colon was perfused. The stomach was perfused as was the rectum. There were no other acute abnormalities. We placed all the viscera back into the abdomen and copiously irrigated with warm saline. We placed the omentum down, 10/10 drape, and closed the skin back with running #1 Prolene suture. An ABD and tape were used for dressing. He tolerated overall pretty well and was transferred back to the ICU. Will plan to return in 48 hours for possible reestablishment of continuity and closure. cc: MD Salvatore Márquez MD
[2017-02-25] MEDS ORDERED: FENTANYL ONE (14:33)
[2017-02-25] MEDS: LOVENOX SUBQ SCH (17:24)
[2017-02-25] MEDS: LEVAQUIN 750 MG/D5W 750 MG/150 ML IVPB IV SCH (22:00)
[2017-02-25] MEDS: CORDARONE 360 MG/D5W 360 MG/200 ML IV.SOLN IV SCH (23:54)
[2017-02-25] MEDS: OFIRMEV 1000 MG/ISOTONIC SOLN 1,000 MG/100 ML BOTTLE IV PRN (23:56)
[2017-02-26] MEDS: LOPRESSOR IV SCH ×4 (01:32→19:38)
[2017-02-26] MEDS: DIPRIVAN 1% 1,000 MG/100 ML BOTTLE IV SCH ×5 (03:04→21:11)
[2017-02-26] MEDS: DUONEB (A & A) INH SCH ×6 (03:43→23:11)
[2017-02-26] MEDS: LR 1,000 ML IV SCH ×2 (04:01→10:21)
[2017-02-26] MEDS: FLAGYL 500 MG/NS 500 MG/100 ML IVPB IV SCH ×4 (04:01→23:02)
[2017-02-26 04:28] LABS: ALLEN TEST YES; BE 7.5 mmoll (-3.0-3.0); BLOOD TYPE ARTERIAL; DRAW SITE R RADIAL; METHB 0.3 % (0.0-1.5); O2(CT) 12.7 mL/dL (15.0-23.0); PCO2(98.6) 39 mmHg (35-45); PO2(98.6) 74 mmHg (60-100); SAMPLE BLOOD; SAO2 99.1 % (95.0-100.0); SRATE 10 BPM; THB 9.3 g/dL (11.5-17.4); TVOL 700 mL; pH(98.6) 7.51 (7.35-7.45)
[2017-02-26 04:30] LABS: MODALITY VENTILATOR
[2017-02-26 05:17] LABS: HEMATOCRIT 29.7 % (42.0-52.0); HEMOGLOBIN 9.7 g/dL (14.0-18.0); MCH 32.1 PG (27-31); MCHC 32.7 g/dL (33-37); MCV 98.3 FL (81-99); MPV 9.9 FL (7.4-10.4); RBC 3.02 XMIL (4.7-6.1)
[2017-02-26 05:31] LABS: AGAP 12; ALBUMIN 2.8 g/dL (3.5-5.0); ALKALINE PHOSPHATASE 34 U/L (32-122); BUN 10 mg/dL (8-22); CHLORIDE 100 mmol/L (98-107); COSMO 274; GOT 21 U/L (10-34); GPT 8 U/L (10-44); POTASSIUM 3.1 mmol/L (3.5-5.1); SODIUM 138 mmol/L (136-145); TCO2 26 mmol/L (25-35); TOTAL BILIRUBIN 0.35 mg/dL (0.20-1.00); TOTAL PROTEIN 4.3 g/dL (6.3-8.3)
[2017-02-26 05:35] LABS: MAGNESIUM 1.8 mg/dL (1.5-2.7)
[2017-02-26] MEDS: FENTANYL IV PRN ×6 (06:27→20:01)
--- NOTE | 2017-02-26 07:05 | Diag Imaging Result Doc PS360 ---
EXAM: CHEST-PORTABLE HISTORY: respiratory failure COMMENT: There is an endotracheal tube with its tip at thoracic inlet. There is an NG tube which passes below the diaphragm. There is hazy opacity over both lung bases particularly the left. Some of this may be due to pleural fluid. This has worsened particularly with respect to the right lower lobe than on the previous study of 02/25/2017. IMPRESSION: Slightly worsened pulmonary edema. Electronically signed by Kenneth Cantu 02/26/2017 7:02 AM
[2017-02-26] MEDS: PROTONIX IV SCH ×2 (09:36→20:01)
[2017-02-26] MEDS: LANOXIN IV SCH (09:36)
--- NOTE | 2017-02-26 11:17 | PROGRESS NOTE ---
DATE: 02/26/2017 SUBJECTIVE: No events weaning on his pressors. He is comfortable. OBJECTIVE: Vital signs: Temperature 97.3, pulse 69, blood pressure 104/56. He is on 30 mcg of Avery-Synephrine, off the Levophed. Saturation is 100% on 40% FiO2 with PEEP of 5. General: He is alert. Abdomen: Dressing on his abdomen is intact. He is soft. Appropriately tender. Nondistended. Extremities: No lower extremity edema. His feet are well perfused. LABORATORY: White count is down to 9, hematocrit 29. ABG 7.51, 39, 74, 30. Creatinine 0.7, glucose is 82. ASSESSMENT AND PLAN: This is a 76-year-old male in discontinuity after temporary abdominal closure for ischemic bowel. Yesterday his washout looked good. There is no further ischemia. Will plan to take him tomorrow to reanastomose and close if we can get him off the pressor. So the goal today will be to wean off his vasopressors which I think we will be able to do. Will continue to follow along. cc: MD Salvatore Márquez MD
[2017-02-26] MEDS: CLINIMIX E 4.25%-5% SOLUTION 1,000 ML IV SCH ×2 (12:56→21:08)
[2017-02-26] MEDS: OFIRMEV 1000 MG/ISOTONIC SOLN 1,000 MG/100 ML BOTTLE IV PRN (12:56)
[2017-02-26] MEDS ORDERED: POTASSIUM CHLORIDE IV ONE (13:00)
[2017-02-26] MEDS ORDERED: D5W IV ONE (13:00)
[2017-02-26] MEDS ORDERED: POTASSIUM PHOSPHATE IV ONE (13:00)
[2017-02-26] MEDS: CORDARONE 360 MG/D5W 360 MG/200 ML IV.SOLN IV SCH ×2 (13:15→19:58)
[2017-02-26] MEDS: NEO-SYNEPHRINE 50 MG in NS 250 ML IV SCH (15:36)
[2017-02-26] MEDS ORDERED: CALCIUM GLUCONATE 1 GM in NS 50 ML IV ONE (17:00)
[2017-02-26] MEDS: LOVENOX SUBQ SCH (17:05)
[2017-02-26] MEDS ORDERED: SODIUM CHLORIDE 0.9% 10 ML ONE (19:54)
[2017-02-26] MEDS: LEVAQUIN 750 MG/D5W 750 MG/150 ML IVPB IV SCH (21:08)
[2017-02-27] MEDS: FENTANYL IV PRN ×8 (00:05→22:54)
[2017-02-27] MEDS: LOPRESSOR IV SCH ×4 (02:10→20:11)
[2017-02-27] MEDS: DIPRIVAN 1% 1,000 MG/100 ML BOTTLE IV SCH ×5 (02:11→23:53)
[2017-02-27] MEDS: DUONEB (A & A) INH SCH ×6 (03:12→23:05)
[2017-02-27 04:37] LABS: ALLEN TEST YES; BE 10.3 mmoll (-3.0-3.0); BLOOD TYPE ARTERIAL; DRAW SITE R RADIAL; O2(CT) 13.4 mL/dL (15.0-23.0); PCO2(98.6) 43 mmHg (35-45); PO2(98.6) 85 mmHg (60-100); SAMPLE BLOOD; SAO2 96.2 % (95.0-100.0); SRATE 10 BPM; THB 9.9 g/dL (11.5-17.4); TVOL 700 mL; pH(98.6) 7.51 (7.35-7.45)
[2017-02-27 04:38] LABS: MODALITY VENTILATOR
[2017-02-27] MEDS: FLAGYL 500 MG/NS 500 MG/100 ML IVPB IV SCH ×4 (04:47→22:44)
[2017-02-27 05:55] LABS: MAGNESIUM 1.7 mg/dL (1.5-2.7)
[2017-02-27 06:04] LABS: AGAP 10; ALBUMIN 2.4 g/dL (3.5-5.0); ALKALINE PHOSPHATASE 33 U/L (32-122); BUN 10 mg/dL (8-22); CALCIUM 8.1 mg/dL (8.8-10.2); CHLORIDE 101 mmol/L (98-107); COSMO 280; GOT 17 U/L (10-34); GPT 8 U/L (10-44); POTASSIUM 3.5 mmol/L (3.5-5.1); SODIUM 140 mmol/L (136-145); TCO2 29 mmol/L (25-35); TOTAL BILIRUBIN 0.19 mg/dL (0.20-1.00); TOTAL PROTEIN 4.1 g/dL (6.3-8.3)
[2017-02-27 06:14] LABS: HEMATOCRIT 25.5 % (42.0-52.0); HEMOGLOBIN 8.3 g/dL (14.0-18.0); MCH 31.9 PG (27-31); MCHC 32.5 g/dL (33-37); MCV 98.1 FL (81-99); MPV 9.8 FL (7.4-10.4); RBC 2.6 XMIL (4.7-6.1)
--- NOTE | 2017-02-27 07:40 | Diag Imaging Result Doc PS360 ---
EXAM: CHEST-PORTABLE HISTORY: respiratory failure COMPARISON: 02/26/2017 FINDINGS: Endotracheal tube and nasogastric tube remain in place. There is stable lower lung edema, most prominent on the left. There is no pneumothorax. Heart size is upper normal. IMPRESSION: Stable lower lung edema, most prominent on the left. Electronically signed by Kuldeep Martinez 02/27/2017 7:38 AM
[2017-02-27] MEDS: PROTONIX IV SCH ×2 (08:28→20:09)
[2017-02-27] MEDS: LANOXIN IV SCH (08:30)
--- NOTE | 2017-02-27 09:39 | PROGRESS NOTE ---
DATE: 02/27/2017 SUBJECTIVE: No events overnight. Down to 50 mcg of Avery-Synephrine. Stable ventilator. No fevers. PHYSICAL EXAMINATION: Vital Signs: Temperature is 97.5, pulse 76, blood pressure 106/57, oxygen saturation 99% on 40%, PEEP of 5. Abdomen: Soft, nondistended. Dressing is intact. Extremities: No lower extremity edema and they are well perfused. Cardiovascular: Appears to still be in atrial fibrillation but rate controlled. LABS: White count is 8, hematocrit is 25. ABG 7.51, 43, 85, 32. Creatinine is 0.6, glucose 130. Chest x-ray is clear with good position of all his tubes. ASSESSMENT/PLAN: A 76-year-old male with small bowel ischemia, status post abdominal washout with temporary closure. Plans to go today for definitive reanastomosis and abdominal closure. Given that he has on minimal pressors, suspect that as we get him off the ventilator and have the abdomen closed that his physiology will normalize and we will be able to get him off pressors. Discussed with the family and will plan to go today. cc: MD Salvatore Márquez MD
[2017-02-27] MEDS ORDERED: FENTANYL ONE (11:31)
[2017-02-27] MEDS ORDERED: VERSED ONE ×2 (11:31)
[2017-02-27] MEDS ORDERED: NS 1,000 ML ONE (11:42)
[2017-02-27] MEDS ORDERED: SODIUM CHLORIDE 0.9% 20 ML ONE (11:42)
[2017-02-27] MEDS ORDERED: LR 1,000 ML ONE (11:42)
[2017-02-27] MEDS ORDERED: OFIRMEV 1000 MG/ISOTONIC SOLN 1,000 MG/100 ML BOTTLE ONE (11:42)
[2017-02-27] MEDS ORDERED: EPHEDRINE ONE (11:42)
[2017-02-27] MEDS ORDERED: NEO-SYNEPHRINE ONE (11:42)
[2017-02-27] MEDS ORDERED: NORCURON ONE (11:42)
[2017-02-27] MEDS: CLINIMIX E 4.25%-5% SOLUTION 1,000 ML IV SCH ×3 (12:01→20:34)
--- NOTE | 2017-02-27 12:30 | OPERATIVE NOTE ---
PROCEDURE DATE: 02/27/2017 PREOPERATIVE DIAGNOSES: 1. Small bowel ischemia. 2. Cholecystitis. PROCEDURE PERFORMED: 1. Re-entry exploratory laparotomy with abdominal washout. 2. Ileocecectomy with anastomosis small bowel to ascending colon. 3. Cholecystectomy. ANESTHESIA: General. ESTIMATED BLOOD LOSS: 75 mL. ASSISTANTS: Vahid Pereyra MD. Dr. Pereyra was present for the entirety of the case, from opening of the abdomen through the creation anastomosis and the cholecystectomy. He facilitated retraction and exposure. ANESTHESIA: General. DRAINS: Frederick drain left in the gallbladder fossa. INDICATIONS: This is a 76-year-old male who presented emergently approximately 5 days ago with peritonitis and was found to have a large segment of small bowel ischemia of unclear etiology. There were some other areas of concern but he was unstable in the operating room. As such, we temporarily closed the abdomen, took him to ICU, and resuscitated him. He went back for washout 48 hours ago. However, was on multiple pressors and was not appropriate for anastomosis at that time. As such, we washed the abdomen out amount but there is no further ischemia. Today we as he is on minimal vasopressor, Avery-Synephrine we proceeded with definitive anastomosis and closure. FINDINGS: There is dilated small bowel throughout. There is no evidence of ongoing necrosis or ischemia. All bowel was peristalsing and looked normal. The gallbladder had some acute inflammation that has progressed over the last 48 hours. It was dilated and cholecystectomy is indicated. Operative Notes: Risks, benefits, alternatives were discussed with the family. They consented to the procedure. He was seen in the ICU and was transferred from the ICU to the operating room, placed in the supine position. General anesthesia was induced. There was a previously placed oral tracheal tube. His abdomen was prepped with Betadine and draped in the usual fashion. He had a Zeng and NG tube are in place. After a time-out was performed, we removed his previous skin suture, opened that, removed old 07/22 drape, and systematically inspect all quadrants of the abdomen. There was no evidence of necrosis. At this point , we turned our attention to the right colon. There was just a stump of the terminal ileum left , not sufficient to create an anastomosis. As such, we mobilized the terminal ileum and the white line of Toldt, fully mobilizing the right colon. It was a very short right colon. It did require mobilizing some omentum off the transverse colon, but we were able to get good length here. We took some mesenteric branches to the terminal ileum off the ileocolic trunk preserving the ileocolic trunk. We were able to do an ileocecectomy, stapling across healthy well perfuse colon that was nondilated. At this point, we brought the small bowel around to neutral position of the mesentery and created a [id number] functional end-to-end anastomosis with a JULIANE blue load 80 mm stapler. Removed the corners of both the colon and small intestine, protecting the surrounding structures. No spillage of succus. We fired 1 fire creating a common enterotomy. Inspected this and it was hemostatic. Then a 2nd fire closed the common enterotomy. We imbricated the corners of the staple line and we placed crotch stitch with Vicryl suture to take the tension off the anastomosis. There was no tension whatsoever. Then closed the mesenteric defect with interrupted 3-0 Vicryl sutures. I placed this back in the right lower quadrant. We confirmed there was no twisting of the mesentery or kink of the small bowel. There was not. We then turned our attention to the right upper quadrant. The inflamed gallbladder was grasped with a Vick clamp and taking it down in a top down fashion we removed it from the gallbladder bed, obtaining hemostasis as we went. It was quite oozy and very inflamed, stuck to the liver. We cut this down to the cystic duct. We placed a clamp in the cystic artery. Branches were very small and were able to be controlled electrocautery. Right-angle clamp was placed. We divided the gallbladder, passed it off, and then doubly ligated with a 2-0 silk suture. The cystic duct. We obtained hemostasis. . There was a question of a small tiny duct posteriorly in the gallbladder. We clipped this to ligate it and applied Surgicel to the gallbladder fossa. We irrigated the abdomen and inspected anastomosis, it looked okay, it was patent and were able to milk succus through this and well perfused. I then inspect the gallbladder fossa. Given the oozing nature and the inflammation we left a Frederick drain in the gallbladder fossa, secured this with 2-0 nylon suture, brought it out through a lateral stab incision. After irrigating that copiously with warm saline, we closed the fascia with a running #1 loop P[address] suture in place 0 Vicryl interrupted retention sutures. We then the loosely closed the skin with fransisco. At the conclusion, all counts were correct x2. He was transferred back to ICU on the ventilator. I spoke with the family. cc: MD Salvatore Márquez MD [facility]
[2017-02-27] MEDS: CORDARONE 360 MG/D5W 360 MG/200 ML IV.SOLN IV SCH ×2 (15:11→20:11)
[2017-02-27] MEDS: OFIRMEV 1000 MG/ISOTONIC SOLN 1,000 MG/100 ML BOTTLE IV PRN ×2 (15:26→20:33)
[2017-02-27] MEDS: LOVENOX SUBQ SCH (16:23)
[2017-02-27] MEDS: SOLU-CORTEF IV SCH (17:40)
[2017-02-27] MEDS: STERILE WATER INJ. INJ SCH (17:41)
[2017-02-27] MEDS: LEVAQUIN 750 MG/D5W 750 MG/150 ML IVPB IV SCH (22:44)
[2017-02-27] MEDS ORDERED: LASIX IV ONE (23:00)
[2017-02-28] MEDS: FENTANYL IV PRN ×8 (00:28→21:15)
[2017-02-28] MEDS: LOPRESSOR IV SCH ×2 (01:00→11:57)
[2017-02-28] MEDS: NEO-SYNEPHRINE 50 MG in NS 250 ML IV SCH (01:08)
[2017-02-28] MEDS: DUONEB (A & A) INH SCH ×6 (03:15→22:56)
[2017-02-28] MEDS: CLINIMIX E 4.25%-5% SOLUTION 1,000 ML IV SCH (03:18)
[2017-02-28 04:29] LABS: ALLEN TEST YES; BE 11.8 mmoll (-3.0-3.0); BLOOD TYPE ARTERIAL; DRAW SITE R RADIAL; METHB 1.1 % (0.0-1.5); PCO2(98.6) 38 mmHg (35-45); PO2(98.6) 72 mmHg (60-100); SAMPLE BLOOD; SAO2 97.1 % (95.0-100.0); SRATE 10 BPM; THB 10.5 g/dL (11.5-17.4); TVOL 700 mL
[2017-02-28 04:30] LABS: MODALITY VENTILATOR
[2017-02-28 04:31] LABS: pH(98.6) 7.57 (7.35-7.45)
[2017-02-28] MEDS: FLAGYL 500 MG/NS 500 MG/100 ML IVPB IV SCH ×4 (04:38→22:03)
[2017-02-28] MEDS: SOLU-CORTEF IV SCH ×2 (04:38→16:39)
[2017-02-28] MEDS: STERILE WATER INJ. INJ SCH ×2 (05:51→16:39)
[2017-02-28] MEDS: DIPRIVAN 1% 1,000 MG/100 ML BOTTLE IV SCH (06:10)
[2017-02-28 06:37] LABS: HEMOGLOBIN 10.2 g/dL (14.0-18.0); MCHC 32.9 g/dL (33-37); MCV 97.2 FL (81-99); MPV 9.8 FL (7.4-10.4); RBC 3.19 XMIL (4.7-6.1)
[2017-02-28 06:47] LABS: MAGNESIUM 1.8 mg/dL (1.5-2.7)
[2017-02-28 06:57] LABS: AGAP 12; ALBUMIN 2.3 g/dL (3.5-5.0); ALKALINE PHOSPHATASE 36 U/L (32-122); BUN 16 mg/dL (8-22); CALCIUM 7.9 mg/dL (8.8-10.2); CHLORIDE 99 mmol/L (98-107); COSMO 280; GOT 37 U/L (10-34); GPT 14 U/L (10-44); POTASSIUM 3.4 mmol/L (3.5-5.1); SODIUM 139 mmol/L (136-145); TCO2 28 mmol/L (25-35); TOTAL BILIRUBIN 0.25 mg/dL (0.20-1.00); TOTAL PROTEIN 5.1 g/dL (6.3-8.3)
[2017-02-28] MEDS: OFIRMEV 1000 MG/ISOTONIC SOLN 1,000 MG/100 ML BOTTLE IV PRN ×2 (07:57→20:02)
[2017-02-28] MEDS: PROTONIX IV SCH ×2 (08:04→20:02)
[2017-02-28] MEDS: LANOXIN IV SCH (08:04)
[2017-02-28 08:18] LABS: PROTIME 10.5 Seconds (9.2-11.7)
[2017-02-28] MEDS ORDERED: NS 250 ML ONE (08:41)
[2017-02-28 09:08] LABS: PREALBUMIN 10.7 mg/dL (20-40)
--- NOTE | 2017-02-28 09:45 | Diag Imaging Result Doc PS360 ---
CHEST-PORTABLE - 02/28/2017 INDICATION: PICC placement confirmation. TECHNIQUE: COMPARISON: 02/27/2017 FINDINGS: There is a new right PICC line with the catheter tip in the mid SVC. Stable endotracheal tube and nasogastric tube in good position. Stable patchy bilateral infiltrates, worse at the bases. Heart size remains borderline. IMPRESSION: Good line placement. No complications. Electronically signed by Manuel Palmer 02/28/2017 9:42 AM
[2017-02-28] MEDS ORDERED: CORDARONE 360 MG/D5W 360 MG/200 ML IV.SOLN IV ONE (11:00)
[2017-02-28 11:05] LABS: ALLEN TEST NO; BE 7.9 mmoll (-3.0-3.0); BLOOD TYPE ARTERIAL; DRAW SITE R BRACHIAL; O2(CT) 14.4 mL/dL (15.0-23.0); PCO2(98.6) 35 mmHg (35-45); PO2(98.6) 72 mmHg (60-100); SAMPLE BLOOD; SAO2 96.8 % (95.0-100.0); THB 10.8 g/dL (11.5-17.4); pH(98.6) 7.55 (7.35-7.45)
[2017-02-28 11:06] LABS: MODALITY VENTILATOR
[2017-02-28 13:15] LABS: AGAP 12; BUN 19 mg/dL (8-22); CALCIUM 8.2 mg/dL (8.8-10.2); CHLORIDE 98 mmol/L (98-107); COSMO 282; GOT 36 U/L (10-34); MAGNESIUM 1.8 mg/dL (1.5-2.7); POTASSIUM 3.4 mmol/L (3.5-5.1); PREALBUMIN 11.8 mg/dL (20-40); SODIUM 139 mmol/L (136-145); TCO2 29 mmol/L (25-35); TRIGLYCERIDES 115 mg/dL (39-160)
--- NOTE | 2017-02-28 13:59 | PROGRESS NOTE ---
DATE: 02/28/2017 SUBJECTIVE: No events overnight. Off Levophed. He is resting comfortably. No change in ventilator. OBJECTIVE: I reviewed his vital signs. Temperature is 99.9, pulse 102, blood pressure 194/57, O2 saturation 97% on 40% and PEEP of 5. General: He is sedated and NG tube is less bilious. Endotracheal tube is in place. Abdomen is soft, nontender. Right groin lines in place. White count 13, hematocrit 31. AB.55, 35, 32, 31. Creatinine 0.7. Prealbumin is 11.8. ASSESSMENT AND PLAN: This is a 76-year-old male with ischemic small bowel status post definitive abdominal closure and anastomosis yesterday. He is doing well. I think we can work towards extubating him as he is hemodynamically stable on minimal ventilator settings. We will continue to follow along. As he has return of bowel function, we can discontinue his NG tube and start enteral nutrition, but I suspect it is going to be a couple days yet. Plan is to place a PICC line and discontinue his femoral line. We will continue to follow along. Dr. Chavarria is hand alterations tailor this weekend and follows my patients, and he is accessible via phone. cc: MD Salvatore Márquez MD
[2017-02-28] MEDS: TPN ELECTROLYTES 20 ML, MAGNESIUM SULFATE 5 MEQ, POTASSIUM CHLORIDE 30 MEQ, SODIUM PHOS... IV SCH ×8 (14:03)
[2017-02-28] MEDS: LIPOSYN 20% 250 ML IV SCH (14:04)
[2017-02-28] MEDS: ZOFRAN IV PRN (15:24)
[2017-02-28] MEDS: BLISTEX MEDICATED BERRY LIP BALM TOP PRN (16:38)
[2017-02-28] MEDS: LOVENOX SUBQ SCH (16:39)
[2017-02-28] MEDS ORDERED: CORDARONE 540 MG in D5W 289.2 ML IV ONE (17:00)
[2017-02-28] MEDS: LEVAQUIN 750 MG/D5W 750 MG/150 ML IVPB IV SCH (22:03)
[2017-03-01] MEDS: OFIRMEV 1000 MG/ISOTONIC SOLN 1,000 MG/100 ML BOTTLE IV PRN ×2 (01:05→17:22)
[2017-03-01] MEDS: FENTANYL IV PRN ×5 (01:22→23:45)
[2017-03-01] MEDS: DUONEB (A & A) INH SCH ×6 (03:47→22:56)
[2017-03-01 04:36] LABS: ALLEN TEST YES; BE 11.5 mmoll (-3.0-3.0); BLOOD TYPE ARTERIAL; DRAW SITE R RADIAL; METHB 0.9 % (0.0-1.5); MODALITY CANNULA; O2(CT) 9.2 mL/dL (15.0-23.0); PCO2(98.6) 41 mmHg (35-45); PO2(98.6) 65 mmHg (60-100); SAMPLE BLOOD; SAO2 96.1 % (95.0-100.0); THB 6.9 g/dL (11.5-17.4); pH(98.6) 7.54 (7.35-7.45)
[2017-03-01 04:47] LABS: HEMATOCRIT 30.3 % (42.0-52.0); MCH 31.4 PG (27-31); MCV 95.3 FL (81-99); MPV 9.3 FL (7.4-10.4); RBC 3.18 XMIL (4.7-6.1)
[2017-03-01] MEDS: FLAGYL 500 MG/NS 500 MG/100 ML IVPB IV SCH ×4 (05:06→23:32)
[2017-03-01] MEDS: STERILE WATER INJ. INJ SCH ×2 (05:07→17:24)
[2017-03-01] MEDS: SOLU-CORTEF IV SCH ×2 (05:07→17:22)
[2017-03-01 05:11] LABS: MAGNESIUM 1.9 mg/dL (1.5-2.7)
[2017-03-01 05:13] LABS: AGAP 9; ALBUMIN 2.4 g/dL (3.5-5.0); ALKALINE PHOSPHATASE 41 U/L (32-122); BUN 19 mg/dL (8-22); CHLORIDE 98 mmol/L (98-107); COSMO 279; GOT 51 U/L (10-34); GPT 19 U/L (10-44); SODIUM 137 mmol/L (136-145); TCO2 30 mmol/L (25-35); TOTAL BILIRUBIN 0.24 mg/dL (0.20-1.00); TOTAL PROTEIN 5.3 g/dL (6.3-8.3)
[2017-03-01] MEDS ORDERED: POTASSIUM CHLORIDE 20 MEQ/SWI 20 MEQ/100 ML IVPB IV ONE (09:01)
[2017-03-01] MEDS: PROTONIX IV SCH ×2 (09:22→21:50)
[2017-03-01] MEDS: LOPRESSOR PO SCH ×2 (09:24→21:50)
--- NOTE | 2017-03-01 11:02 | PROGRESS NOTE ---
DATE: 03/01/2017 SUBJECTIVE: Mr. Connor Mac is a 76-year-old white male who has had a difficult hospital course. He has been operated on several times by Dr. Gonzalez. Most recently, yesterday, he underwent closure of his abdominal wall. He has also undergone a small-bowel resection for ischemia and also cholecystectomy. He does have a just a Frederick drain in place, which is draining serous fluid. His midline incision is intact. He has an abdominal binder in place. I have removed the packing of the midline incision this morning. He still has an NG tube in place. He has no gastric function. We will leave the NG tube. He is receiving TPN and lipids as nutrition. PLAN: We will start trying to move him around, at least sitting on the side of the bed. Will leave his NG tube in place, continue TPN at this time. cc: MD Salvatore Reynoso MD
--- NOTE | 2017-03-01 12:22 | PROGRESS NOTE ---
DATE: 03/01/2017 SUBJECTIVE: Mr. Mac has been extubated. He is currently complaining of some mild abdominal discomfort but otherwise no heart racing. PHYSICAL EXAMINATION: Shows that he had a T-max of 100.1 degrees yesterday evening at 8 p.m. Heart rates in the 90s to low 100s. His blood pressure most recently was 135/78. General: No acute distress. Cardiovascular: He is in an irregularly irregular, mildly tachycardic rhythm. Currently his rate is in the low 100s. Chest: Has coarse bilateral breath sounds. No increased work of breathing. Abdomen: Is currently in a binder. Skin Exam: Warm and dry throughout. PERTINENT DATA: His white count is 13.7, his hematocrit is 30, his platelet count is 277,000. His sodium is 137, potassium is 3. His BUN is 19, creatinine 0.7. His magnesium level is 1.9. ASSESSMENT: 1. Atrial fibrillation. 2. Hypokalemia. 3. Recent abdominal surgery. PLAN: We will continue on IV amiodarone. He seems to be having reasonable control of his heart rate. When he is able to take oral medications he will be switched over to oral amiodarone. His potassium was already repleted this morning. cc: MD Salvatore Ngo MD
[2017-03-01] MEDS: LIPOSYN 20% 250 ML IV SCH (12:55)
[2017-03-01] MEDS: ZOFRAN IV PRN ×2 (12:56→17:22)
[2017-03-01] MEDS: TPN ELECTROLYTES 20 ML, MAGNESIUM SULFATE 5 MEQ, POTASSIUM CHLORIDE 30 MEQ, SODIUM PHOS... IV SCH ×8 (13:32)
[2017-03-01] MEDS: CORDARONE 360 MG/D5W 360 MG/200 ML IV.SOLN IV SCH (16:24)
[2017-03-01] MEDS: LOVENOX SUBQ SCH (17:20)
[2017-03-01] MEDS: LEVAQUIN 750 MG/D5W 750 MG/150 ML IVPB IV SCH (21:50)
[2017-03-02] MEDS: DUONEB (A & A) INH SCH ×6 (03:44→23:08)
[2017-03-02] MEDS: CORDARONE 360 MG/D5W 360 MG/200 ML IV.SOLN IV SCH ×2 (04:35→15:26)
[2017-03-02 04:49] LABS: ALLEN TEST YES; BE 11.9 mmoll (-3.0-3.0); BLOOD TYPE ARTERIAL; DRAW SITE R RADIAL; METHB 0.9 % (0.0-1.5); O2(CT) 14.2 mL/dL (15.0-23.0); PCO2(98.6) 37 mmHg (35-45); PO2(98.6) 53 mmHg (60-100); SAMPLE BLOOD; SAO2 92.8 % (95.0-100.0); THB 11.2 g/dL (11.5-17.4)
[2017-03-02 04:50] LABS: MODALITY CANNULA; pH(98.6) 7.58 (7.35-7.45)
[2017-03-02] MEDS: SOLU-CORTEF IV SCH ×2 (05:09→17:01)
[2017-03-02] MEDS: FLAGYL 500 MG/NS 500 MG/100 ML IVPB IV SCH ×4 (05:09→22:48)
[2017-03-02 06:20] LABS: HEMATOCRIT 29.3 % (42.0-52.0); HEMOGLOBIN 9.6 g/dL (14.0-18.0); MCH 31.4 PG (27-31); MCHC 32.8 g/dL (33-37); MCV 95.8 FL (81-99); MPV 9.6 FL (7.4-10.4); RBC 3.06 XMIL (4.7-6.1)
[2017-03-02] MEDS: STERILE WATER INJ. INJ SCH ×2 (06:41→17:01)
[2017-03-02 06:56] LABS: AGAP 12; ALBUMIN 2.3 g/dL (3.5-5.0); ALKALINE PHOSPHATASE 41 U/L (32-122); BUN 19 mg/dL (8-22); CHLORIDE 101 mmol/L (98-107); COSMO 285; GOT 41 U/L (10-34); GPT 24 U/L (10-44); POTASSIUM 3.4 mmol/L (3.5-5.1); SODIUM 141 mmol/L (136-145); TCO2 28 mmol/L (25-35); TOTAL BILIRUBIN 0.18 mg/dL (0.20-1.00); TOTAL PROTEIN 5.3 g/dL (6.3-8.3)
[2017-03-02] MEDS: PROTONIX IV SCH ×2 (08:33→20:58)
[2017-03-02] MEDS: LOPRESSOR PO SCH ×2 (08:33→20:58)
--- NOTE | 2017-03-02 12:48 | PROGRESS NOTE ---
DATE: 03/02/2017 SUBJECTIVE: Patient reports his abdominal pain is roughly stable from yesterday. He is not having any flatus as of yet. He does report some mild abdominal cramping. PHYSICAL EXAMINATION: Vital signs: He is afebrile. His heart rates have been predominantly in the 80s to 90s recently. His blood pressure is 131/76. General: No acute distress. Cardiovascular: He is in an irregularly regular rhythm. He does have a 2/6 systolic murmur that is crescendo decrescendo, best heard at the right upper sternal border. He has no S3. He has no lower extremity edema. Chest: Exam is clear bilaterally. No increased work of breathing. Abdomen: Soft, nontender. PERTINENT DATA: Sodium is 141, potassium 3.4. His BUN is 19, creatinine 0.6. His white count is 13.1. ASSESSMENT: 1. Atrial fibrillation. 2. Status post abdominal surgery. PLAN: We will continue him on IV amiodarone. When the patient is able to take oral medications he may be transitioned over. Dr. Mays will be back to see the patient in the morning. cc: MD Salvatore Ngo MD
[2017-03-02] MEDS: TPN ELECTROLYTES 20 ML, MAGNESIUM SULFATE 5 MEQ, POTASSIUM CHLORIDE 30 MEQ, SODIUM PHOS... IV SCH ×8 (13:37)
[2017-03-02] MEDS: LIPOSYN 20% 250 ML IV SCH (13:37)
--- NOTE | 2017-03-02 13:56 | PROGRESS NOTE ---
DATE: 03/02/2017 Mr. Mac is status post a small bowel resection, also cholecystectomy, also delayed abdominal closure per Dr. Gonzalez. He remains in our ICU with an NG tube in, Zeng catheter tube in. His midline wound is intact and is healing well. I removed the packing yesterday. He still has no significant bowel activity. He is receiving IV nutrition. We are moving him around in his room. Clinically, he is improving. cc: MD Salvatore Reynoso MD
[2017-03-02] MEDS: ZOFRAN IV PRN (15:26)
[2017-03-02] MEDS: BLISTEX MEDICATED BERRY LIP BALM TOP PRN (15:50)
[2017-03-02] MEDS: LOVENOX SUBQ SCH (17:01)
[2017-03-02] MEDS: FENTANYL IV PRN ×2 (18:18→21:06)
[2017-03-02] MEDS: SODIUM CHLORIDE 0.9% 10 ML ONE (20:58)
[2017-03-02] MEDS: LEVAQUIN 750 MG/D5W 750 MG/150 ML IVPB IV SCH (21:11)
[2017-03-03] MEDS: CORDARONE 360 MG/D5W 360 MG/200 ML IV.SOLN IV SCH (03:22)
[2017-03-03] MEDS: DUONEB (A & A) INH SCH ×6 (03:37→23:20)
[2017-03-03] MEDS: FENTANYL IV PRN ×3 (04:14→21:46)
[2017-03-03 04:29] LABS: ALLEN TEST YES; BE 10.8 mmoll (-3.0-3.0); BLOOD TYPE ARTERIAL; DRAW SITE R RADIAL; O2(CT) 18.9 mL/dL (15.0-23.0); PCO2(98.6) 39 mmHg (35-45); PO2(98.6) 51 mmHg (60-100); SAMPLE BLOOD; SAO2 91.4 % (95.0-100.0); THB 15.2 g/dL (11.5-17.4); pH(98.6) 7.55 (7.35-7.45)
[2017-03-03 04:30] LABS: MODALITY CANNULA
[2017-03-03] MEDS: SOLU-CORTEF IV SCH ×2 (05:52→17:14)
[2017-03-03] MEDS: FLAGYL 500 MG/NS 500 MG/100 ML IVPB IV SCH ×4 (05:52→23:59)
[2017-03-03] MEDS: STERILE WATER INJ. INJ SCH ×2 (05:53→17:15)
[2017-03-03 06:29] LABS: HEMATOCRIT 28.8 % (42.0-52.0); HEMOGLOBIN 9.4 g/dL (14.0-18.0); MCH 31.5 PG (27-31); MCHC 32.6 g/dL (33-37); MCV 96.6 FL (81-99); MPV 9.5 FL (7.4-10.4); RBC 2.98 XMIL (4.7-6.1)
[2017-03-03 06:34] LABS: AGAP 12; ALBUMIN 2.3 g/dL (3.5-5.0); ALKALINE PHOSPHATASE 47 U/L (32-122); BUN 19 mg/dL (8-22); CALCIUM 7.8 mg/dL (8.8-10.2); CHLORIDE 101 mmol/L (98-107); COSMO 289; GOT 26 U/L (10-34); GPT 19 U/L (10-44); POTASSIUM 2.9 mmol/L (3.5-5.1); SODIUM 143 mmol/L (136-145); TCO2 30 mmol/L (25-35); TOTAL BILIRUBIN 0.18 mg/dL (0.20-1.00); TOTAL PROTEIN 5.1 g/dL (6.3-8.3)
[2017-03-03] MEDS: PROTONIX IV SCH ×2 (08:17→21:19)
[2017-03-03] MEDS: SODIUM CHLORIDE 0.9% 10 ML ONE ×2 (08:18→21:19)
[2017-03-03] MEDS: LOPRESSOR PO SCH ×2 (08:30→21:20)
[2017-03-03] MEDS: LIPOSYN 20% 250 ML IV SCH ×2 (11:01→13:15)
--- NOTE | 2017-03-03 11:36 | Diag Imaging Result Doc PS360 ---
EXAM: CHEST-PORTABLE INDICATION: pneumonia COMPARISON: 02/28/2017 FINDINGS: The right PICC line is in stable position. There has been interval extubation and removal of the NG tube. Central vasculature is stable to slightly more prominent than previously suggesting slight worsening of pulmonary venous congestion. Otherwise, the patchy infiltrates are essentially unchanged. There has been development of mild subsegmental atelectasis at the left lung base. Cardiac silhouette is prominent but stable. IMPRESSION: Increased perihilar lung markings suggesting likely pulmonary venous congestion that is slightly worse and development of minimal left basilar atelectasis. Electronically signed by Gallo Stallings 03/03/2017 11:33 AM
[2017-03-03] MEDS: TPN ELECTROLYTES 20 ML, MAGNESIUM SULFATE 5 MEQ, POTASSIUM CHLORIDE 40 MEQ, SODIUM PHOS... IV SCH ×8 (13:15)
[2017-03-03] MEDS: POTASSIUM CHLORIDE 40 MEQ/SWI 40 MEQ/100 ML IVPB IV SCH ×2 (13:25→21:20)
[2017-03-03] MEDS: LASIX IV SCH (13:25)
--- NOTE | 2017-03-03 14:31 | PROGRESS NOTE ---
DATE: 03/03/2017 SUBJECTIVE: Feels well. No bowel function yet, but NG tube output is down. Pain is well controlled. OBJECTIVE: General: Alert, good spirits. Vital signs: Temperature is 99.3 degrees, pulse 86, blood pressure 127/66, O2 saturation 92% on 2 L. Abdomen: Soft, appropriately tender. HECTOR drain serosanguineous, partially dislodged. NG tube output is mostly gastric in appearance. Extremities: No lower extremity edema. Feet are well perfused. DATA: White counts up to 14, hematocrit 28. ABG 7.55, 39, 51, 33. Creatinine 0.6. ASSESSMENT/PLAN: A 76-year-old male, status post bowel resection, cholecystectomy and with temporary abdominal closure, now doing well. He has not had return of bowel function. I have removed his nasogastric tube and his Ozzie-Amador drain today. We will take his Zeng catheter out tomorrow. Continue parenteral support. As he has return of bowel function, we can start giving enteral nutrition. This will probably be another day or two. cc: MD Salvatore Márquez MD
[2017-03-03] MEDS: LOVENOX SUBQ SCH (17:13)
[2017-03-03] MEDS ORDERED: SODIUM CHLORIDE 0.9% 10 ML ONE (21:15)
[2017-03-03] MEDS: LEVAQUIN 750 MG/D5W 750 MG/150 ML IVPB IV SCH (21:20)
[2017-03-03] MEDS: ZOFRAN IV PRN (21:47)
[2017-03-04] MEDS: LASIX IV SCH (01:02)
[2017-03-04] MEDS: FENTANYL IV PRN ×5 (01:11→22:12)
[2017-03-04] MEDS: DUONEB (A & A) INH SCH ×6 (03:30→23:13)
[2017-03-04] MEDS: ZOFRAN IV PRN ×2 (04:09→22:12)
[2017-03-04] MEDS: CORDARONE 360 MG/D5W 360 MG/200 ML IV.SOLN IV SCH ×2 (04:10→23:58)
[2017-03-04 05:16] LABS: ALLEN TEST YES; BE 11.1 mmoll (-3.0-3.0); BLOOD TYPE ARTERIAL; DRAW SITE R RADIAL; METHB 0.7 % (0.0-1.5); O2(CT) 12.8 mL/dL (15.0-23.0); PCO2(98.6) 35 mmHg (35-45); PO2(98.6) 66 mmHg (60-100); SAMPLE BLOOD; SAO2 96.7 % (95.0-100.0); THB 9.6 g/dL (11.5-17.4)
[2017-03-04 05:17] LABS: pH(98.6) 7.59 (7.35-7.45)
[2017-03-04 05:18] LABS: MODALITY CANNULA
[2017-03-04] MEDS: SOLU-CORTEF IV SCH ×2 (05:32→17:21)
[2017-03-04] MEDS: FLAGYL 500 MG/NS 500 MG/100 ML IVPB IV SCH ×4 (05:32→22:54)
[2017-03-04 05:55] LABS: MAGNESIUM 1.9 mg/dL (1.5-2.7)
[2017-03-04 05:56] LABS: AGAP 11; ALBUMIN 2.5 g/dL (3.5-5.0); ALKALINE PHOSPHATASE 48 U/L (32-122); BUN 19 mg/dL (8-22); CALCIUM 7.9 mg/dL (8.8-10.2); CHLORIDE 99 mmol/L (98-107); COSMO 284; GOT 19 U/L (10-34); GPT 16 U/L (10-44); POTASSIUM 3.2 mmol/L (3.5-5.1); SODIUM 140 mmol/L (136-145); TCO2 30 mmol/L (25-35); TOTAL PROTEIN 5.2 g/dL (6.3-8.3)
[2017-03-04 06:05] LABS: HEMATOCRIT 28.2 % (42.0-52.0); HEMOGLOBIN 9.3 g/dL (14.0-18.0); MCH 31.1 PG (27-31); MCV 94.3 FL (81-99); MPV 9.6 FL (7.4-10.4); RBC 2.99 XMIL (4.7-6.1)
[2017-03-04] MEDS: PROTONIX IV SCH ×2 (08:14→22:12)
[2017-03-04] MEDS: SODIUM CHLORIDE 0.9% 10 ML ONE (08:14)
[2017-03-04] MEDS ORDERED: VANCOMYCIN IV PER PHARMACY MISC SCH (09:15)
[2017-03-04] MEDS: MYCAMINE 100 MG in NS 100 ML IV SCH (09:54)
[2017-03-04] MEDS: LOPRESSOR PO SCH ×2 (09:58→22:12)
[2017-03-04] MEDS ORDERED: VANCOMYCIN 1.7 GM in NS 250 ML IV ONE (11:00)
--- NOTE | 2017-03-04 12:00 | PROGRESS NOTE ---
DATE: 03/04/2017 SUBJECTIVE: He is much more alert. Denies any real abdominal pain. He did have a painful IV in his right hand that was removed last night. Otherwise, he is doing okay. OBJECTIVE: Vital Signs: Temperature is 100.4 degrees this morning, but no other fevers overnight. Pulse is in the 90s. Blood pressure is 114/66. Oxygen saturation 93% on 3L. General: He is alert. Abdomen: Mildly distended. Drains out he is passing gas. Had bowel movements yesterday. Integument: Incision is clean, dry, and intact. He has got a right PICC line with no erythema. The left forearm IV does have a little bit of a cord here. Genitourinary: Zeng catheter is in place. LABORATORIES: White count is up to 17. Hematocrit is 28. ABGs 7.59, 35, 66, and 33.5. Creatinine is 0.6. Glucose is 134. ASSESSMENT AND PLAN: This is a 76-year-old male who is status post bowel resection and cholecystectomy for bowel ischemia. He is doing surprisingly well, given his overall medical issues. He has had a low-grade temperature with rising leukocytosis. He is on antibiotics. We will remove all extra IVs and Zeng catheter today, check a chest x-ray and a urinalysis. His wound looks okay. I do not suspect this is the source. His abdomen is benign, although he does have a bit of an ileus and he is a little distended. cc: MD Salvatore Márquez MD
[2017-03-04] MEDS: TPN ELECTROLYTES 20 ML, MAGNESIUM SULFATE 5 MEQ, POTASSIUM CHLORIDE 40 MEQ, SODIUM PHOS... IV SCH ×8 (12:32)
[2017-03-04] MEDS: LIPOSYN 20% 250 ML IV SCH (12:32)
--- NOTE | 2017-03-04 12:51 | Diag Imaging Result Doc PS360 ---
EXAM: CHEST-PORTABLE HISTORY: fever TECHNIQUE: Portable upright COMPARISON: 03/03/2017 FINDINGS: There is a right-sided PICC line. The heart is borderline mildly prominent. The vessels are not distended. There is increased density in the lower lungs. This is slightly less pronounced in the lower right lung compared to the prior study. This may be slightly less dense on the left as well. There is a tiny left effusion. IMPRESSION: Mild interval improvement Electronically signed by Abhijeet Kc 03/04/2017 12:49 PM
[2017-03-04] MEDS: LOVENOX SUBQ SCH (17:21)
[2017-03-04] MEDS: STERILE WATER INJ. INJ SCH ×2 (19:37)
[2017-03-04] MEDS: LEVAQUIN 750 MG/D5W 750 MG/150 ML IVPB IV SCH (22:11)
[2017-03-05] MEDS: DUONEB (A & A) INH SCH ×6 (03:49→23:14)
[2017-03-05] MEDS: FENTANYL IV PRN ×3 (04:44→20:26)
[2017-03-05] MEDS: FLAGYL 500 MG/NS 500 MG/100 ML IVPB IV SCH ×4 (04:44→23:55)
[2017-03-05] MEDS: ZOFRAN IV PRN ×2 (04:53→14:22)
[2017-03-05 05:29] LABS: HEMATOCRIT 29.7 % (42.0-52.0); HEMOGLOBIN 9.7 g/dL (14.0-18.0); MCH 31.6 PG (27-31); MCHC 32.7 g/dL (33-37); MCV 96.7 FL (81-99); MPV 9.4 FL (7.4-10.4); RBC 3.07 XMIL (4.7-6.1)
[2017-03-05 06:17] LABS: AGAP 12; ALBUMIN 2.5 g/dL (3.5-5.0); ALKALINE PHOSPHATASE 62 U/L (32-122); BUN 20 mg/dL (8-22); CALCIUM 8.1 mg/dL (8.8-10.2); CHLORIDE 97 mmol/L (98-107); COSMO 281; GOT 23 U/L (10-34); GPT 14 U/L (10-44); POTASSIUM 3.2 mmol/L (3.5-5.1); SODIUM 138 mmol/L (136-145); TCO2 29 mmol/L (25-35); TOTAL BILIRUBIN 0.24 mg/dL (0.20-1.00); TOTAL PROTEIN 5.5 g/dL (6.3-8.3)
--- NOTE | 2017-03-05 08:48 | PROGRESS NOTE ---
DATE: 03/05/2017 SUBJECTIVE: Persistent abdominal distention. No nausea or vomiting. He is having flatus and stools. Voiding after his Zeng was removed. PHYSICAL EXAMINATION: Vital Signs: Temperatures, no fevers overnight. Temperature is 98.6 degrees this morning. Pulse 90, blood pressure 147/79, oxygen saturation 97% on 2 L. General: He is alert and oriented. Abdomen: Is soft, nontender but is tympanic and distended. Skin: Incision looks clean, dry, and intact. No drainage. Extremities: No lower extremity edema. LABS: Reviewed. White count is up to 18, hematocrit is 27. Creatinine is 0.6 , glucose 144. ASSESSMENT/PLAN: A 76-year-old male status post bowel resection now with ileus , delayed closure and right colon anastomosis for bowel ischemia. He has had a persistent ileus , although he is having some gradual return of bowel function. His examination is benign. I have low suspicion for leak as he has not had any fevers but his white count is rising. It is possibly related to steroids that Dr. Cabrera has prescribed for his lungs but will continue to monitor him for this. I am going to get a plain film x-ray of his abdomen today to see if he has more small bowel or colonic gas, and make a decision about management going forward. If he develops fevers, rising leukocytosis, or worsening clinical condition, we may need to get a CT scan. He would be a high risk for an abscess but this is a little early for that yet after his definitive closure. We will continue to follow along. Dr. Alfaro is covering my patients as I will be out of town for the next couple days. cc: MD Salvatore Márquez MD [facility]
[2017-03-05] MEDS: PROTONIX IV SCH ×2 (08:49→20:25)
[2017-03-05] MEDS: LOPRESSOR PO SCH ×2 (08:49→20:28)
[2017-03-05] MEDS: MYCAMINE 100 MG in NS 100 ML IV SCH (08:49)
[2017-03-05 08:52] LABS: MAGNESIUM 1.9 mg/dL (1.5-2.7)
--- NOTE | 2017-03-05 08:57 | Diag Imaging Result Doc PS360 ---
EXAM: FLAT/UPRIGHT ABD/1 VIEW CHEST INDICATION: abdominal distention TECHNIQUE: Three views COMPARISON: Chest radiograph dated 03/04/2017 and chest and abdominal radiograph dated 02/23/2017. FINDINGS: There are now metallic skin fransisco at the midline of the abdomen indicating interval laparotomy. There are multiple gas-distended loops of small bowel. This is actually worse than the presurgical distention. At least part of this is probably due to postsurgical ileus. There is no evidence of large volume free abdominal gas. Right PICC line is stable. Inspiration is suboptimal. Vague opacities in the lower lung zones bilaterally that probably represent edema plus or minus pneumonia are probably stable given differences in inspiration. No definite new consolidations identified. Cardiac silhouette is stable. IMPRESSION: 1.Worsening of gaseous distention of small bowel as compared to the preoperative radiograph. 2.Vague infiltrates probably representing edema at the lower lung zones are proximally stable given differences in inspiration. Electronically signed by Gallo Stallings 03/05/2017 8:55 AM
[2017-03-05] MEDS: SOLU-CORTEF IV SCH (10:58)
[2017-03-05] MEDS: STERILE WATER INJ. INJ SCH (10:59)
[2017-03-05] MEDS: VANCOMYCIN 1.2 GM in NS 250 ML IV SCH (11:11)
[2017-03-05 11:29] LABS: AGAP 11; BUN 21 mg/dL (8-22); CALCIUM 8.2 mg/dL (8.8-10.2); CHLORIDE 95 mmol/L (98-107); COSMO 276; GOT 17 U/L (10-34); MAGNESIUM 1.9 mg/dL (1.5-2.7); POTASSIUM 3.2 mmol/L (3.5-5.1); PREALBUMIN 20.4 mg/dL (20-40); SODIUM 135 mmol/L (136-145); TCO2 29 mmol/L (25-35); TRIGLYCERIDES 92 mg/dL (39-160)
--- NOTE | 2017-03-05 11:41 | Diag Imaging Result Doc PS360 ---
EXAM: CHEST/ABD TUBE PLACEMENT INDICATION: Verification of NG tube placement TECHNIQUE: One view COMPARISON: 03/05/2017 FINDINGS: There has been recent placement of an NG tube. The tip projects well below the diaphragm and is assumed to be in the lumen of the stomach in the expected position. There are persistent gas distended loops of bowel that are similar to the previous study. The limited view of the chest is essentially stable. IMPRESSION: Interval placement of an NG tube in expected position as described. Essentially stable, otherwise. Electronically signed by Gallo Stallings 03/05/2017 11:39 AM
[2017-03-05] MEDS ORDERED: POTASSIUM PHOSPHATE IV SCH ×14 (12:00→13:00)
[2017-03-05] MEDS ORDERED: TPN ELECTROLYTES IV SCH ×14 (12:00→13:00)
[2017-03-05] MEDS ORDERED: [UNRECOGNIZED DRUG - OTHER] IV SCH ×14 (12:00→13:00)
[2017-03-05] MEDS ORDERED: MAGNESIUM SULFATE IV SCH ×14 (12:00→13:00)
[2017-03-05] MEDS: CORDARONE 360 MG/D5W 360 MG/200 ML IV.SOLN IV SCH (12:19)
[2017-03-05 12:45] LABS: URINE CULTURE NEEDED? NO; URINE MICRO REVIEW NEEDED? NO; URINE SOURCE CATH
[2017-03-05 12:53] LABS: BILIRUBIN URINE NEGATIVE (NEGATIVE); BLOOD URINE NEGATIVE (NEGATIVE); COLOR YELLOW; GLUCOSE URINE 500 mg/dL (NEGATIVE); LEUKOCYTES URINE NEGATIVE (NEGATIVE); NITRITE URINE NEGATIVE (NEGATIVE); PH URINE 6.5; PROTEIN URINE TRACE mg/dL (NEGATIVE); SP GRAVITY URINE 1.024; TURBIDITY URINE CLEAR (CLEAR); UR EPITHELIAL CELLS <10 /HPF (<10); URINE BACTERIA NEGATIVE /HPF; URINE RBC <10 /HPF (<10); URINE WBC <10 /HPF (<10); UROBILINOGEN URINE NORMAL (NORMAL)
[2017-03-05] MEDS: LIPOSYN 20% 250 ML IV SCH (12:59)
[2017-03-05] MEDS: LOVENOX SUBQ SCH (16:46)
[2017-03-05] MEDS ORDERED: SODIUM CHLORIDE 0.9% 10 ML ONE (20:21)
[2017-03-05] MEDS: SODIUM CHLORIDE 0.9% 10 ML ONE (20:26)
[2017-03-05] MEDS: LEVAQUIN 750 MG/D5W 750 MG/150 ML IVPB IV SCH (22:09)
[2017-03-06] MEDS: FENTANYL IV PRN ×3 (00:27→14:29)
[2017-03-06] MEDS: CORDARONE 360 MG/D5W 360 MG/200 ML IV.SOLN IV SCH ×2 (00:38→12:13)
[2017-03-06] MEDS: DUONEB (A & A) INH SCH ×6 (03:57→23:02)
[2017-03-06] MEDS: FLAGYL 500 MG/NS 500 MG/100 ML IVPB IV SCH ×4 (04:22→23:20)
--- NOTE | 2017-03-06 06:27 | PROGRESS NOTE ---
DATE: 03/06/2017 SUBJECTIVE: I discussed the case with Dr. Gonzalez. Patient still reports abdominal discomfort but on a more descriptive of basis, it sounds like it is more from distention. He did have an NG tube placed and has had almost a liter removed at this point. He has been voiding. OBJECTIVE: Vital Signs: Patient is currently afebrile. His vital signs are stable. He is on amiodarone. Abdomen: Appears to be distended but soft. He has got a binder in place. His incision is healing well. Laboratory: Currently pending. ASSESSMENT/PLAN: A 76-year-old, male status post bowel resection, now with likely an ileus. At this time, we will continue nasogastric tube decompression. His labs are not back yet. His white blood cell count had been increasing. There were multiple etiologies for the potential cause of this increase in white blood cell count but if it continues to increase, may need to consider a CT scan here today. He has had blood and sputum cultures which have not shown any growth. He has been followed by critical care. He is still getting steroids but he is also on Levaquin, micafungin, and vancomycin. We will follow up with this morning's laboratory and make decision on CT scan. cc: MD Salvatore Farias MD
[2017-03-06 06:46] LABS: MAGNESIUM 1.8 mg/dL (1.5-2.7)
[2017-03-06 07:01] LABS: AGAP 12; ALBUMIN 2.4 g/dL (3.5-5.0); ALKALINE PHOSPHATASE 54 U/L (32-122); BUN 19 mg/dL (8-22); CALCIUM 7.8 mg/dL (8.8-10.2); CHLORIDE 96 mmol/L (98-107); COSMO 278; GOT 14 U/L (10-34); GPT 12 U/L (10-44); POTASSIUM 2.7 mmol/L (3.5-5.1); SODIUM 137 mmol/L (136-145); TCO2 29 mmol/L (25-35); TOTAL BILIRUBIN 0.21 mg/dL (0.20-1.00); TOTAL PROTEIN 5.3 g/dL (6.3-8.3)
[2017-03-06 07:14] LABS: HEMATOCRIT 27.6 % (42.0-52.0); HEMOGLOBIN 9.2 g/dL (14.0-18.0); MCH 31.4 PG (27-31); MCHC 33.3 g/dL (33-37); MCV 94.2 FL (81-99); MPV 9.5 FL (7.4-10.4); RBC 2.93 XMIL (4.7-6.1)
--- NOTE | 2017-03-06 07:30 | Diag Imaging Result Doc PS360 ---
EXAM: CHEST-PORTABLE - 03/06/2017 HISTORY: respiratory failure TECHNIQUE: Portable chest 0500 COMPARISON: 03/05/2017 FINDINGS: There is a nasogastric tube extending to the proximal to mid stomach. PICC remains in place. There is stable borderline cardiomegaly. There are bilateral infiltrates which appear stable to mildly decreased. There is no substantial pleural effusion or pneumothorax identified. IMPRESSION: Stable to mildly decreased bilateral infiltrates. Electronically signed by Kuldeep Martinez 03/06/2017 7:27 AM
[2017-03-06] MEDS: OFIRMEV 1000 MG/ISOTONIC SOLN 1,000 MG/100 ML BOTTLE IV PRN (07:55)
[2017-03-06] MEDS: LOPRESSOR PO SCH ×2 (08:02→21:35)
[2017-03-06] MEDS: MYCAMINE 100 MG in NS 100 ML IV SCH (09:00)
[2017-03-06] MEDS: STERILE WATER INJ. INJ SCH (09:00)
[2017-03-06] MEDS: PROTONIX IV SCH ×2 (09:00→21:34)
[2017-03-06] MEDS ORDERED: [UNRECOGNIZED DRUG - OTHER] IV SCH ×8 (11:03)
[2017-03-06] MEDS ORDERED: TPN ELECTROLYTES IV SCH ×8 (11:03)
[2017-03-06] MEDS ORDERED: POTASSIUM PHOSPHATE IV SCH ×8 (11:03)
[2017-03-06] MEDS ORDERED: MAGNESIUM SULFATE IV SCH ×8 (11:03)
[2017-03-06] MEDS: SOLU-CORTEF IV SCH (12:05)
[2017-03-06] MEDS: VANCOMYCIN 1.2 GM in NS 250 ML IV SCH (12:06)
[2017-03-06] MEDS: LIPOSYN 20% 500 ML IV SCH (13:44)
[2017-03-06] MEDS ORDERED: POTASSIUM CHLORIDE IV ONE (14:00)
[2017-03-06] MEDS ORDERED: POTASSIUM PHOSPHATE IV ONE (14:00)
[2017-03-06] MEDS ORDERED: D5 IV ONE (14:00)
[2017-03-06] MEDS ORDERED: 1/2 NS IV ONE (14:00)
[2017-03-06] MEDS: ZOFRAN IV PRN (14:29)
[2017-03-06] MEDS: LASIX IV SCH (14:29)
[2017-03-06] MEDS: LOVENOX SUBQ SCH (17:47)
[2017-03-06] MEDS: LEVAQUIN 750 MG/D5W 750 MG/150 ML IVPB IV SCH (21:35)
[2017-03-07] MEDS: FENTANYL IV PRN ×3 (00:31→17:46)
[2017-03-07] MEDS: LASIX IV SCH (00:35)
[2017-03-07] MEDS: CORDARONE 360 MG/D5W 360 MG/200 ML IV.SOLN IV SCH ×3 (01:35→23:56)
[2017-03-07] MEDS: DUONEB (A & A) INH SCH ×6 (03:32→23:31)
[2017-03-07 05:11] LABS: HEMATOCRIT 28.5 % (42.0-52.0); HEMOGLOBIN 9.4 g/dL (14.0-18.0); MCH 31.2 PG (27-31); MCV 94.7 FL (81-99); MPV 9.4 FL (7.4-10.4); RBC 3.01 XMIL (4.7-6.1)
[2017-03-07 05:35] LABS: MAGNESIUM 1.7 mg/dL (1.5-2.7)
[2017-03-07 05:50] LABS: AGAP 12; BUN 14 mg/dL (8-22); CALCIUM 8.1 mg/dL (8.8-10.2); CHLORIDE 97 mmol/L (98-107); SODIUM 139 mmol/L (136-145); TCO2 30 mmol/L (25-35); TOTAL BILIRUBIN 0.18 mg/dL (0.20-1.00); TOTAL PROTEIN 5.3 g/dL (6.3-8.3)
[2017-03-07] MEDS: FLAGYL 500 MG/NS 500 MG/100 ML IVPB IV SCH ×4 (06:17→23:56)
[2017-03-07 06:26] LABS: ALBUMIN 2.5 g/dL (3.5-5.0); ALKALINE PHOSPHATASE 52 U/L (32-122); GOT 18 U/L (10-34); GPT 12 U/L (10-44)
[2017-03-07 06:35] LABS: COSMO 280
--- NOTE | 2017-03-07 07:03 | PROGRESS NOTE ---
DATE: 03/07/2017 SUBJECTIVE: The patient doing well. No major issues. Discussed this case with the nurse from overnight. No major issues. His NG tube is still having essentially over a L out total. He is still on amiodarone. OBJECTIVE: Vital Signs: Patient is currently afebrile. His vital signs have been stable. General: No acute distress. Cardiovascular: Regular rate and rhythm. Lungs: Grossly clear. Abdomen: Soft, appropriately tender. LABORATORY: White blood count 16 which is down from 17, hematocrit 28.5. Remainder of labs reviewed. ASSESSMENT AND PLAN: A 76-year-old male status post bowel resection now with postoperative ileus. At this time, I will continue NG tube decompression. His white blood cell count is now decreasing. We will continue to monitor. We will hold off on CT scan. Continue close monitoring. cc: MD Salvatore Farias MD
--- NOTE | 2017-03-07 07:21 | Diag Imaging Result Doc PS360 ---
EXAM: CHEST-PORTABLE INDICATION: respiratory failure TECHNIQUE: One view COMPARISON: 03/06/2017 FINDINGS: Right PICC line is stable. NG tube is stable. The bilateral infiltrates appear to have improved marginally during the interval. No new consolidation is appreciated. The cardiac silhouette is stable. IMPRESSION: Stable chest. Electronically signed by Gallo Stallings 03/07/2017 7:19 AM
[2017-03-07] MEDS: PROTONIX IV SCH ×2 (08:58→21:20)
[2017-03-07] MEDS ORDERED: POTASSIUM CHLORIDE 40 MEQ/SWI 40 MEQ/100 ML IVPB IV ONE (10:57)
[2017-03-07] MEDS: LOPRESSOR PO SCH ×2 (11:17→21:18)
[2017-03-07] MEDS: STERILE WATER INJ. INJ SCH (11:18)
[2017-03-07] MEDS: SOLU-CORTEF IV SCH (11:18)
[2017-03-07] MEDS: MYCAMINE 100 MG in NS 100 ML IV SCH (11:20)
[2017-03-07] MEDS: LIPOSYN 20% 500 ML IV SCH (12:44)
[2017-03-07] MEDS ORDERED: MAGNESIUM SULFATE IV SCH ×8 (12:47)
[2017-03-07] MEDS ORDERED: POTASSIUM PHOSPHATE IV SCH ×8 (12:47)
[2017-03-07] MEDS ORDERED: TPN ELECTROLYTES IV SCH ×8 (12:47)
[2017-03-07] MEDS ORDERED: [UNRECOGNIZED DRUG - OTHER] IV SCH ×8 (12:47)
[2017-03-07] MEDS: VANCOMYCIN 1.2 GM in NS 250 ML IV SCH (13:40)
[2017-03-07 14:28] LABS: AGAP 10; BUN 14 mg/dL (8-22); CALCIUM 7.9 mg/dL (8.8-10.2); CHLORIDE 97 mmol/L (98-107); COSMO 277; GOT 16 U/L (10-34); MAGNESIUM 1.8 mg/dL (1.5-2.7); POTASSIUM 3.6 mmol/L (3.5-5.1); PREALBUMIN 19.9 mg/dL (20-40); SODIUM 137 mmol/L (136-145); TCO2 30 mmol/L (25-35); TRIGLYCERIDES 76 mg/dL (39-160)
[2017-03-07] MEDS: LOVENOX SUBQ SCH (16:46)
[2017-03-07] MEDS: SODIUM CHLORIDE 0.9% MISC PRN (21:22)
[2017-03-07] MEDS: LEVAQUIN 750 MG/D5W 750 MG/150 ML IVPB IV SCH (22:15)
[2017-03-08] MEDS: DUONEB (A & A) INH SCH ×6 (03:10→22:56)
[2017-03-08 06:34] LABS: MAGNESIUM 1.9 mg/dL (1.5-2.7)
[2017-03-08 06:38] LABS: AGAP 11; ALBUMIN 2.4 g/dL (3.5-5.0); ALKALINE PHOSPHATASE 53 U/L (32-122); BUN 15 mg/dL (8-22); CALCIUM 7.9 mg/dL (8.8-10.2); CHLORIDE 99 mmol/L (98-107); COSMO 278; GOT 15 U/L (10-34); GPT 10 U/L (10-44); SODIUM 138 mmol/L (136-145); TCO2 28 mmol/L (25-35); TOTAL BILIRUBIN 0.18 mg/dL (0.20-1.00); TOTAL PROTEIN 5.3 g/dL (6.3-8.3)
[2017-03-08] MEDS: FLAGYL 500 MG/NS 500 MG/100 ML IVPB IV SCH ×3 (06:38→18:24)
[2017-03-08 06:46] LABS: HEMATOCRIT 29.4 % (42.0-52.0); HEMOGLOBIN 9.8 g/dL (14.0-18.0); MCHC 33.3 g/dL (33-37); MPV 9.5 FL (7.4-10.4); PLT 765 X1000 (130-400); RBC 3.16 XMIL (4.7-6.1)
[2017-03-08 06:58] LABS: BANDS 4 % (0-1); EOS 2 % (1-10); LYMPHS 16 % (21-51); MONO 4 % (1-9)
--- NOTE | 2017-03-08 08:01 | Diag Imaging Result Doc PS360 ---
CHEST-PORTABLE - 03/08/2017 INDICATION: respiratory failure TECHNIQUE: COMPARISON: 03/07/2017 FINDINGS: Stable support lines and tubes. Stable hazy left basilar infiltrate/effusion in the lower lobe. There is improvement in the mixed central and upper lobe infiltrates suggesting improving edema. Heart size remains borderline. IMPRESSION: Improvement in the background pulmonary edema. Electronically signed by Manuel Palmer 03/08/2017 7:59 AM
[2017-03-08] MEDS: VANCOMYCIN 1.2 GM in NS 250 ML IV SCH (08:02)
[2017-03-08] MEDS: LOPRESSOR PO SCH ×2 (08:31→21:09)
[2017-03-08] MEDS: SODIUM CHLORIDE 0.9% MISC PRN (09:33)
[2017-03-08] MEDS: PROTONIX IV SCH ×2 (09:33→21:07)
[2017-03-08] MEDS: STERILE WATER INJ. INJ SCH (09:37)
[2017-03-08] MEDS: SOLU-CORTEF IV SCH (09:37)
[2017-03-08] MEDS: CORDARONE 360 MG/D5W 360 MG/200 ML IV.SOLN IV SCH ×2 (09:40→21:07)
[2017-03-08] MEDS: FENTANYL IV PRN ×2 (10:03→21:21)
[2017-03-08] MEDS: MYCAMINE 100 MG in NS 100 ML IV SCH (10:52)
[2017-03-08] MEDS ORDERED: POTASSIUM CHLORIDE 40 MEQ/SWI 40 MEQ/100 ML IVPB IV ONE (12:58)
[2017-03-08] MEDS ORDERED: [UNRECOGNIZED DRUG - OTHER] IV SCH ×8 (13:00)
[2017-03-08] MEDS ORDERED: MAGNESIUM SULFATE IV SCH ×8 (13:00)
[2017-03-08] MEDS ORDERED: POTASSIUM PHOSPHATE IV SCH ×8 (13:00)
[2017-03-08] MEDS ORDERED: TPN ELECTROLYTES IV SCH ×8 (13:00)
--- NOTE | 2017-03-08 13:06 | PROGRESS NOTE ---
DATE: 03/08/2017 SUBJECTIVE: Patient relates some low grade abdominal discomfort. He has had no chest pain and denies shortness of breath on supplemental oxygen per nasal cannula. He still has an NG tube in. OBJECTIVE: Vital Signs: Blood pressure 102/76. Heart: Rate 92, with ECG monitor showing sinus rhythm with frequent premature atrial complexes of different morphologies (wandering atrial pacemaker). Neck: There is no significant jugular venous distention. Chest: Auscultation of the chest reveals diminished breath sounds diffusely. Cardiac Exam: Reveals a regular rate and rhythm with frequent extrasystole. There is no evidence of peripheral edema. IMPRESSION: 1. Atrial arrhythmias, postoperatively. 2. Severe aortic stenosis. 3. Status post laparotomy and resection of ischemic bowel. 4. Likely significant chronic obstructive pulmonary disease. RECOMMENDATIONS: Continue current cardiovascular regimen unchanged. Pending further improvement from a noncardiac standpoint. cc: MD Salvatore Cota MD
[2017-03-08] MEDS: LIPOSYN 20% 500 ML IV SCH (13:30)
[2017-03-08] MEDS: LOVENOX SUBQ SCH (16:26)
[2017-03-08] MEDS: LEVAQUIN 750 MG/D5W 750 MG/150 ML IVPB IV SCH (21:08)
[2017-03-09] MEDS: FLAGYL 500 MG/NS 500 MG/100 ML IVPB IV SCH ×4 (00:50→17:17)
[2017-03-09] MEDS: VANCOMYCIN 1.2 GM in NS 250 ML IV SCH ×2 (01:31→20:38)
[2017-03-09] MEDS: DUONEB (A & A) INH SCH ×6 (03:00→23:06)
[2017-03-09 06:23] LABS: HEMATOCRIT 28.1 % (42.0-52.0); HEMOGLOBIN 9.3 g/dL (14.0-18.0); MCH 30.7 PG (27-31); MCHC 33.1 g/dL (33-37); MCV 92.7 FL (81-99); MPV 9.2 FL (7.4-10.4); RBC 3.03 XMIL (4.7-6.1)
--- NOTE | 2017-03-09 06:29 | Diag Imaging Result Doc PS360 ---
EXAM: CHEST-PORTABLE HISTORY: respiratory failure TECHNIQUE: Portable AP COMPARISON: 03/08/2017 FINDINGS: The lungs are well expanded. No change in the right-sided PICC line in the nasogastric tube. There is a small left pleural effusion. Small infiltrates are found in the mid lungs and left base. The overall appearance is quite similar to that of the prior exam. IMPRESSION: Stable chest Electronically signed by Abhijeet Kc 03/09/2017 6:26 AM
[2017-03-09 07:04] LABS: AGAP 13; ALBUMIN 2.3 g/dL (3.5-5.0); ALKALINE PHOSPHATASE 53 U/L (32-122); BUN 14 mg/dL (8-22); CALCIUM 8.2 mg/dL (8.8-10.2); CHLORIDE 100 mmol/L (98-107); COSMO 278; GOT 15 U/L (10-34); GPT 10 U/L (10-44); MAGNESIUM 1.9 mg/dL (1.5-2.7); POTASSIUM 2.8 mmol/L (3.5-5.1); SODIUM 138 mmol/L (136-145); TCO2 25 mmol/L (25-35); TOTAL PROTEIN 5.2 g/dL (6.3-8.3)
[2017-03-09] MEDS: FENTANYL IV PRN ×2 (07:18→15:46)
[2017-03-09] MEDS: SODIUM CHLORIDE 0.9% MISC PRN (08:19)
[2017-03-09] MEDS: CORDARONE 360 MG/D5W 360 MG/200 ML IV.SOLN IV SCH ×2 (08:19→19:02)
[2017-03-09] MEDS: PROTONIX IV SCH ×2 (08:19→20:37)
[2017-03-09] MEDS: LOPRESSOR PO SCH ×2 (08:22→20:47)
[2017-03-09] MEDS: SOLU-CORTEF IV SCH (09:55)
[2017-03-09] MEDS: STERILE WATER INJ. INJ SCH (09:56)
[2017-03-09] MEDS: MYCAMINE 100 MG in NS 100 ML IV SCH (10:05)
[2017-03-09] MEDS: OFIRMEV 1000 MG/ISOTONIC SOLN 1,000 MG/100 ML BOTTLE IV PRN (11:06)
[2017-03-09] MEDS: LIPOSYN 20% 500 ML IV SCH (12:00)
[2017-03-09] MEDS: POTASSIUM PHOSPHATE IV SCH ×9 (14:35)
[2017-03-09] MEDS: TPN ELECTROLYTES IV SCH ×9 (14:35)
[2017-03-09] MEDS: [UNRECOGNIZED DRUG - OTHER] IV SCH ×9 (14:35)
[2017-03-09] MEDS: MAGNESIUM SULFATE IV SCH ×9 (14:35)
[2017-03-09] MEDS: LOVENOX SUBQ SCH (15:59)
[2017-03-09] MEDS ORDERED: ATIVAN IV PRN (16:00)
--- NOTE | 2017-03-09 17:35 | PROGRESS NOTE ---
DATE: 03/09/2017 SUBJECTIVE: Patient continues without chest discomfort or dyspnea. He does complain of some dizziness which he characterizes further as a spinning sensation. 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 He still has NG tube in place on NG suction. OBJECTIVE: Vital Signs: Blood pressure 122/68, heart rate 75 and irregular with ECG monitor showing sinus rhythm with frequent premature supraventricular complex. Oxygen saturation 93% on nasal cannula at 3 L/minute. Neck: There is no significant jugular venous distention. Chest: Clear to auscultation. Cardiac Exam: Irregular rate and rhythm without appreciable murmur or gallop. Abdomen: Mildly distended but bowel sounds are readily audible. Extremities: Without edema. IMPRESSIONS: 1. Atrial arrhythmias postoperatively. This is stable. 2. Severe aortic stenosis. 3. Status post laparotomy and resection of ischemic valve. 4. Significant chronic obstructive pulmonary disease. 5. Dizziness/vertigo. RECOMMENDATIONS: Continue current cardiovascular regimen unchanged pending further improvement from a noncardiac standpoint. Will try some low-dose Ativan to see if this might help him with his vertigo. cc: MD Salvatore Cota MD
[2017-03-09] MEDS ORDERED: POTASSIUM CHLORIDE 40 MEQ/SWI 40 MEQ/100 ML IVPB IV ONE (19:07)
[2017-03-09] MEDS: LEVAQUIN 750 MG/D5W 750 MG/150 ML IVPB IV SCH (22:58)
[2017-03-10] MEDS: FLAGYL 500 MG/NS 500 MG/100 ML IVPB IV SCH ×4 (00:29→17:42)
[2017-03-10] MEDS: ZOFRAN IV PRN (02:06)
[2017-03-10] MEDS: DUONEB (A & A) INH SCH ×6 (02:54→23:01)
--- NOTE | 2017-03-10 06:19 | Diag Imaging Result Doc PS360 ---
EXAM: CHEST-PORTABLE HISTORY: respiratory failure TECHNIQUE: Portable COMPARISON: 03/09/2017 FINDINGS: No change in the right-sided PICC line or nasogastric tube. Heart is not enlarged. There is a small left effusion small infiltrate in the right lung is unchanged. The overall appearance is similar to prior exam. IMPRESSION: Stable chest. Electronically signed by Abhijeet Kc 03/10/2017 6:17 AM
[2017-03-10 06:39] LABS: AGAP 10; ALBUMIN 2.3 g/dL (3.5-5.0); ALKALINE PHOSPHATASE 59 U/L (32-122); BUN 11 mg/dL (8-22); CALCIUM 7.9 mg/dL (8.8-10.2); CHLORIDE 101 mmol/L (98-107); COSMO 277; GOT 14 U/L (10-34); GPT 10 U/L (10-44); HEMATOCRIT 28.5 % (42.0-52.0); HEMOGLOBIN 9.5 g/dL (14.0-18.0); MCH 30.9 PG (27-31); MCHC 33.3 g/dL (33-37); MCV 92.8 FL (81-99); MPV 9.1 FL (7.4-10.4); POTASSIUM 3.5 mmol/L (3.5-5.1); RBC 3.07 XMIL (4.7-6.1); SODIUM 138 mmol/L (136-145); TCO2 27 mmol/L (25-35); TOTAL BILIRUBIN 0.16 mg/dL (0.20-1.00); TOTAL PROTEIN 5.4 g/dL (6.3-8.3)
[2017-03-10] MEDS: CORDARONE 360 MG/D5W 360 MG/200 ML IV.SOLN IV SCH ×3 (07:16→19:24)
[2017-03-10] MEDS: VANCOMYCIN 1.2 GM in NS 250 ML IV SCH ×2 (08:46→21:43)
[2017-03-10] MEDS: SODIUM CHLORIDE 0.9% MISC PRN ×2 (08:47→21:20)
[2017-03-10] MEDS: LOPRESSOR PO SCH ×2 (08:47→21:43)
[2017-03-10] MEDS: PROTONIX IV SCH ×2 (08:47→21:20)
[2017-03-10] MEDS: SOLU-CORTEF IV SCH (09:01)
[2017-03-10] MEDS: STERILE WATER INJ. INJ SCH (09:02)
--- NOTE | 2017-03-10 10:01 | PROGRESS NOTE ---
DATE: 03/10/2017 SUBJECTIVE: Mr. Connor Mac had his NG tube clamped yesterday, and did not tolerated it. His abdomen got distended, so he still has NG tube suction. He is getting TPN. Hemodynamically, he is satisfactory. His wound is healing well. The nurses are good about moving him around. Dr. Gonzalez returns tomorrow. cc: MD Salvatore Reynoso MD
[2017-03-10] MEDS: MYCAMINE 100 MG in NS 100 ML IV SCH (11:00)
[2017-03-10 11:59] LABS: PREALBUMIN 21.5 mg/dL (20-40)
[2017-03-10] MEDS: LIPOSYN 20% 500 ML IV SCH (13:48)
[2017-03-10] MEDS: [UNRECOGNIZED DRUG - OTHER] IV SCH ×9 (15:55)
[2017-03-10] MEDS: POTASSIUM PHOSPHATE IV SCH ×9 (15:55)
[2017-03-10] MEDS: MAGNESIUM SULFATE IV SCH ×9 (15:55)
[2017-03-10] MEDS: TPN ELECTROLYTES IV SCH ×9 (15:55)
[2017-03-10] MEDS: LOVENOX SUBQ SCH (17:42)
[2017-03-10] MEDS ORDERED: SODIUM CHLORIDE 0.9% 10 ML ONE (21:09)
[2017-03-10] MEDS: LEVAQUIN 750 MG/D5W 750 MG/150 ML IVPB IV SCH (21:20)
[2017-03-11] MEDS: FENTANYL IV PRN ×4 (00:08→20:21)
[2017-03-11] MEDS: FLAGYL 500 MG/NS 500 MG/100 ML IVPB IV SCH ×4 (00:09→18:25)
[2017-03-11] MEDS: DUONEB (A & A) INH SCH ×5 (03:27→23:04)
[2017-03-11] MEDS: CORDARONE 360 MG/D5W 360 MG/200 ML IV.SOLN IV SCH (05:36)
[2017-03-11 06:30] LABS: HEMOGLOBIN 9.1 g/dL (14.0-18.0); MCH 30.4 PG (27-31); MCHC 32.5 g/dL (33-37); MCV 93.6 FL (81-99); MPV 8.8 FL (7.4-10.4); RBC 2.99 XMIL (4.7-6.1)
[2017-03-11 06:42] LABS: AGAP 10; ALBUMIN 2.4 g/dL (3.5-5.0); ALKALINE PHOSPHATASE 56 U/L (32-122); BUN 11 mg/dL (8-22); CALCIUM 7.8 mg/dL (8.8-10.2); CHLORIDE 102 mmol/L (98-107); COSMO 278; GOT 21 U/L (10-34); GPT 10 U/L (10-44); POTASSIUM 3.9 mmol/L (3.5-5.1); SODIUM 139 mmol/L (136-145); TCO2 27 mmol/L (25-35); TOTAL BILIRUBIN 0.17 mg/dL (0.20-1.00); TOTAL PROTEIN 5.5 g/dL (6.3-8.3)
--- NOTE | 2017-03-11 07:12 | PROGRESS NOTE ---
DATE: 03/11/2017 SUBJECTIVE: Discussed with the nurses. He still has over 1 L out of his NG tube although it looks more like gastric contents at this time. Patient says he is passing gas. OBJECTIVE: Vital Signs: Patient is currently afebrile. His vital signs are stable. He is on TPN, amiodarone and IV fluids. General: No acute distress. Cardiovascular: Regular rate and rhythm. Lungs: Grossly clear. Abdomen: Soft. Some mild distention. Incision is healing well. LABORATORY: White blood count 13 which is up slightly from 10. Hematocrit is 28. Remainder of labs reviewed. The electrolytes appeared to be improving. His albumin is 2.4. His pre-albumin yesterday is 21.5. ASSESSMENT AND PLAN: A 76-year-old male status post exploratory laparotomy and small bowel obstruction now with postoperative ileus. At this time, he continues NG tube decompression although it looks like he is having mostly gastric contents that are drained and does not look bilious. We may need to consider small bowel follow-through to see if there is any kind of point of obstruction. He is just passing gas and they had previously clamped his NG tube but he had not tolerated that very well. Dr. Gonzalez will be back tomorrow to evaluate him further. At this time, we will continue current treatment. cc: MD Salvatore Farias MD
--- NOTE | 2017-03-11 07:18 | Diag Imaging Result Doc PS360 ---
EXAM: CHEST-PORTABLE HISTORY: respiratory failure TECHNIQUE: Semierect AP portable chest at 0525 COMMENT: There is an NG tube with its tip below the diaphragm and a right PICC line with its tip in superior vena cava. There is atelectasis versus pneumonia in the inferior right upper lobe. This has not changed significantly since 03/10/2017. IMPRESSION: Stable chest Electronically signed by Kenneth Cantu 03/11/2017 7:16 AM
[2017-03-11] MEDS: VANCOMYCIN 1.2 GM in NS 250 ML IV SCH ×2 (09:30→20:21)
[2017-03-11] MEDS: LOPRESSOR PO SCH (09:38)
[2017-03-11] MEDS: SOLU-CORTEF IV SCH (09:39)
[2017-03-11] MEDS: STERILE WATER INJ. INJ SCH (09:39)
[2017-03-11] MEDS: PROTONIX IV SCH ×2 (09:39→20:22)
[2017-03-11] MEDS: SODIUM CHLORIDE 0.9% MISC PRN ×2 (09:40→20:22)
[2017-03-11] MEDS: MYCAMINE 100 MG in NS 100 ML IV SCH (11:00)
[2017-03-11] MEDS: LIPOSYN 20% 500 ML IV SCH (13:00)
[2017-03-11] MEDS: POTASSIUM PHOSPHATE IV SCH ×9 (14:00)
[2017-03-11] MEDS: MAGNESIUM SULFATE IV SCH ×9 (14:00)
[2017-03-11] MEDS: [UNRECOGNIZED DRUG - OTHER] IV SCH ×9 (14:00)
[2017-03-11] MEDS: TPN ELECTROLYTES IV SCH ×9 (14:00)
[2017-03-11] MEDS: LOVENOX SUBQ SCH (18:00)
[2017-03-11] MEDS: LOPRESSOR IV SCH (18:24)
[2017-03-11] MEDS: LEVAQUIN 750 MG/D5W 750 MG/150 ML IVPB IV SCH (21:46)
[2017-03-12] MEDS: FLAGYL 500 MG/NS 500 MG/100 ML IVPB IV SCH ×4 (01:00→17:03)
[2017-03-12] MEDS: FENTANYL IV PRN ×5 (01:46→22:01)
[2017-03-12] MEDS: DUONEB (A & A) INH SCH ×6 (02:55→23:30)
[2017-03-12] MEDS: LOPRESSOR IV SCH ×2 (04:57→15:56)
[2017-03-12 05:18] LABS: AGAP 12; ALBUMIN 2.2 g/dL (3.5-5.0); ALKALINE PHOSPHATASE 57 U/L (32-122); BUN 10 mg/dL (8-22); CALCIUM 7.7 mg/dL (8.8-10.2); CHLORIDE 101 mmol/L (98-107); COSMO 280; GOT 16 U/L (10-34); GPT 9 U/L (10-44); POTASSIUM 2.9 mmol/L (3.5-5.1); SODIUM 140 mmol/L (136-145); TCO2 27 mmol/L (25-35); TOTAL BILIRUBIN 0.26 mg/dL (0.20-1.00)
[2017-03-12 05:25] LABS: HEMATOCRIT 27.7 % (42.0-52.0); HEMOGLOBIN 9.1 g/dL (14.0-18.0); MCH 31.1 PG (27-31); MCHC 32.9 g/dL (33-37); MCV 94.5 FL (81-99); MPV 10.2 FL (7.4-10.4); RBC 2.93 XMIL (4.7-6.1)
--- NOTE | 2017-03-12 06:11 | Diag Imaging Result Doc PS360 ---
EXAM: CHEST-PORTABLE HISTORY: respiratory failure TECHNIQUE: Portable AP COMPARISON: 03/11/2017 FINDINGS: A nasogastric tube overlies the esophagus and stomach. No change in the right-sided PICC line. There is a small left pleural effusion. Increased interstitial markings with infiltrates in the right midlung persists. The overall appearance is quite similar to that of the prior exam. IMPRESSION: No interval improvement. Electronically signed by Abhijeet Kc 03/12/2017 6:08 AM
[2017-03-12] MEDS: VANCOMYCIN 1.2 GM in NS 250 ML IV SCH ×2 (07:35→21:00)
[2017-03-12] MEDS ORDERED: POTASSIUM CHLORIDE 40 MEQ/SWI 40 MEQ/100 ML IVPB IV ONE (08:28)
--- NOTE | 2017-03-12 08:48 | Diag Imaging Result Doc PS360 ---
EXAM: KUB ABDOMEN HISTORY: tube position TECHNIQUE: Portable supine COMPARISON: 03/05/2017 FINDINGS: There is a nasogastric tube overlying the esophagus and stomach. Multiple midline skin fransisco are present. There is found throughout the small bowel and colon. There are sutures overlying the right iliac bone. IMPRESSION: Nasogastric tube overlies the lower esophagus and stomach Electronically signed by Abhijeet Kc 03/12/2017 8:45 AM
[2017-03-12] MEDS: PROTONIX IV SCH ×2 (08:53→20:12)
[2017-03-12] MEDS: SODIUM CHLORIDE 0.9% MISC PRN ×2 (08:53→20:12)
[2017-03-12] MEDS: STERILE WATER INJ. INJ SCH (09:40)
[2017-03-12] MEDS: LASIX IV SCH ×2 (10:11→21:48)
[2017-03-12] MEDS: MYCAMINE 100 MG in NS 100 ML IV SCH (10:59)
[2017-03-12] MEDS: LIPOSYN 20% 500 ML IV SCH (12:05)
[2017-03-12] MEDS: TPN ELECTROLYTES IV SCH ×9 (14:49)
[2017-03-12] MEDS: [UNRECOGNIZED DRUG - OTHER] IV SCH ×9 (14:49)
[2017-03-12] MEDS: MAGNESIUM SULFATE IV SCH ×9 (14:49)
[2017-03-12] MEDS: POTASSIUM PHOSPHATE IV SCH ×9 (14:49)
[2017-03-12] MEDS: LOVENOX SUBQ SCH (15:56)
--- NOTE | 2017-03-12 16:34 | Diag Imaging Result Doc PS360 ---
EXAM: SMALL BOWEL SERIES ONLY HISTORY: ileus vs obstruction TECHNIQUE: Water-soluble contrast was instilled through the NG tube and radiographs were obtained till one hour 30 minutes, at which time there is contrast in the distal colon. Fluoroscopic spot images were subsequently performed. COMMENT: The patient was very tender to palpation, and limited spot radiographs could be obtained with compression. There is active peristalsis throughout much of the jejunum. The ileocecal valve is poorly demonstrated. There is no apparent obstruction. IMPRESSION: Relatively normal small bowel intestinal transit. No definite obstruction. Electronically signed by Kenneth Cantu 03/12/2017 4:32 PM
[2017-03-12 19:00] LABS: AGAP 11; BUN 11 mg/dL (8-22); CALCIUM 8.4 mg/dL (8.8-10.2); CHLORIDE 103 mmol/L (98-107); COSMO 287; GOT 16 U/L (10-34); MAGNESIUM 2.1 mg/dL (1.5-2.7); POTASSIUM 3.4 mmol/L (3.5-5.1); PREALBUMIN 22.4 mg/dL (20-40); SODIUM 143 mmol/L (136-145); TCO2 29 mmol/L (25-35); TRIGLYCERIDES 100 mg/dL (39-160)
[2017-03-12] MEDS: OFIRMEV 1000 MG/ISOTONIC SOLN 1,000 MG/100 ML BOTTLE IV PRN (19:40)
[2017-03-12] MEDS: LEVAQUIN 750 MG/D5W 750 MG/150 ML IVPB IV SCH (21:00)
[2017-03-13] MEDS: FLAGYL 500 MG/NS 500 MG/100 ML IVPB IV SCH ×4 (00:13→17:08)
[2017-03-13] MEDS: FENTANYL IV PRN ×2 (02:01→05:39)
[2017-03-13] MEDS: DUONEB (A & A) INH SCH ×6 (03:45→23:18)
[2017-03-13] MEDS: LOPRESSOR IV SCH ×2 (04:12→17:08)
[2017-03-13 06:17] LABS: HEMATOCRIT 33.4 % (42.0-52.0); HEMOGLOBIN 10.7 g/dL (14.0-18.0); MCV 96.8 FL (81-99); MPV 8.9 FL (7.4-10.4); RBC 3.45 XMIL (4.7-6.1)
[2017-03-13 06:32] LABS: AGAP 10; ALBUMIN 2.5 g/dL (3.5-5.0); ALKALINE PHOSPHATASE 73 U/L (32-122); BUN 14 mg/dL (8-22); CALCIUM 8.1 mg/dL (8.8-10.2); CHLORIDE 102 mmol/L (98-107); COSMO 284; GOT 17 U/L (10-34); GPT 10 U/L (10-44); POTASSIUM 3.7 mmol/L (3.5-5.1); SODIUM 141 mmol/L (136-145); TCO2 29 mmol/L (25-35); TOTAL BILIRUBIN 0.35 mg/dL (0.20-1.00); TOTAL PROTEIN 5.9 g/dL (6.3-8.3)
--- NOTE | 2017-03-13 07:05 | Diag Imaging Result Doc PS360 ---
EXAM: CHEST-PORTABLE HISTORY: respiratory failure TECHNIQUE: AP supine portable at 0535 COMMENT: There is an NG tube which passes below the diaphragm. There is a PICC line on the right with its tip in the superior vena cava. There is apparent pleural fluid on the left and mild interstitial pulmonary edema is present. Compared to 03/11/2017 there has been slight improvement in the focal opacity in the right upper lobe. IMPRESSION: Left pleural effusion. Mild pulmonary edema. Improved atelectasis or pneumonia right upper lobe. Electronically signed by Kenneth Cantu 03/13/2017 7:02 AM
[2017-03-13] MEDS: VANCOMYCIN 1.2 GM in NS 250 ML IV SCH ×2 (09:00→20:17)
[2017-03-13] MEDS: PROTONIX IV SCH ×2 (09:00→20:17)
[2017-03-13] MEDS: SODIUM CHLORIDE 0.9% MISC PRN (09:00)
[2017-03-13] MEDS: STERILE WATER INJ. INJ SCH (10:04)
[2017-03-13] MEDS: MYCAMINE 100 MG in NS 100 ML IV SCH (10:41)
[2017-03-13] MEDS: OFIRMEV 1000 MG/ISOTONIC SOLN 1,000 MG/100 ML BOTTLE IV PRN (11:49)
--- NOTE | 2017-03-13 12:46 | PROGRESS NOTE ---
DATE: 03/13/2017 SUBJECTIVE: The patient was seen yesterday on 03/12 and this morning on 03/13. Overall feeling well. Feels a little bloated still with some nausea any time the NG tubes is clamped. He had an upper GI study that showed rapid flow of contrast through into the colon about an hour and a half and he continued to have bowel movements and pass gas. No events overnight. OBJECTIVE: Vital Signs: Temperature is this morning was 98.7 degrees, pulse 96, blood pressure 125/61, oxygen saturation 100% on 3 L. General: He is alert and in no acute distress. NG tube is in place with gastric appearing output. Abdomen: Is mildly distended but soft. Incision clean, dry, and intact. Cardiovascular: Normal rate, regular rhythm. LABS: Reviewed. White count fluctuates up to 50 this morning. Hematocrit 33, platelets of 655,000. Creatinine is 0.8. Glucose 139. ASSESSMENT: This is a 76-year-old male, status post bowel resection for bowel ischemia. He has a partial ileus type picture. NG tube output remains high greater than a L although no obstruction is noted on his follow-through study. Place his NG tube to gravity today and see how he tolerates this. We will continue to give him potassium, repleting his electrolytes and monitoring him. He appears to be auto diuresing and having bowel function. Need to watch his I's and O's. His hematocrit and white count have crept up as has his creatinine slightly. Suspect he may be getting a little dry with his insensible loss but will monitor this for now. Continue to follow along. We will move him out to step-down today. cc: MD Salvatore Márquez MD
[2017-03-13] MEDS: LIPOSYN 20% 500 ML IV SCH (15:44)
[2017-03-13] MEDS: TPN ELECTROLYTES IV SCH ×9 (15:45)
[2017-03-13] MEDS: MAGNESIUM SULFATE IV SCH ×9 (15:45)
[2017-03-13] MEDS: [UNRECOGNIZED DRUG - OTHER] IV SCH ×9 (15:45)
[2017-03-13] MEDS: POTASSIUM PHOSPHATE IV SCH ×9 (15:45)
[2017-03-13] MEDS: LOVENOX SUBQ SCH (17:08)
[2017-03-13] MEDS: D10W 1,000 ML IV SCH (18:43)
[2017-03-13] MEDS: MORPHINE IV PRN (21:02)
[2017-03-13] MEDS: LEVAQUIN 750 MG/D5W 750 MG/150 ML IVPB IV SCH (22:52)
[2017-03-14] MEDS: FLAGYL 500 MG/NS 500 MG/100 ML IVPB IV SCH ×3 (01:13→14:15)
[2017-03-14] MEDS: DUONEB (A & A) INH SCH ×5 (03:46→19:26)
[2017-03-14] MEDS: LOPRESSOR IV SCH (04:54)
[2017-03-14 06:10] LABS: HEMATOCRIT 31.8 % (42.0-52.0); HEMOGLOBIN 10.1 g/dL (14.0-18.0); MCH 30.5 PG (27-31); MCHC 31.8 g/dL (33-37); MCV 96.1 FL (81-99); MPV 8.9 FL (7.4-10.4); RBC 3.31 XMIL (4.7-6.1)
[2017-03-14 06:16] LABS: AGAP 10; ALBUMIN 2.4 g/dL (3.5-5.0); ALKALINE PHOSPHATASE 64 U/L (32-122); BUN 17 mg/dL (8-22); CALCIUM 7.6 mg/dL (8.8-10.2); CHLORIDE 101 mmol/L (98-107); COSMO 279; GOT 24 U/L (10-34); GPT 10 U/L (10-44); POTASSIUM 3.4 mmol/L (3.5-5.1); SODIUM 138 mmol/L (136-145); TCO2 27 mmol/L (25-35); TOTAL PROTEIN 5.7 g/dL (6.3-8.3)
[2017-03-14] MEDS: VANCOMYCIN 1.2 GM in NS 250 ML IV SCH (08:32)
[2017-03-14] MEDS: D10W 1,000 ML IV SCH (08:32)
[2017-03-14] MEDS: PROTONIX IV SCH ×2 (08:32→21:07)
[2017-03-14] MEDS ORDERED: POTASSIUM CHLORIDE 60 MEQ in NS 500 ML IV ONE (11:00)
[2017-03-14] MEDS: STERILE WATER INJ. INJ SCH (11:24)
[2017-03-14] MEDS: MYCAMINE 100 MG in NS 100 ML IV SCH (11:49)
--- NOTE | 2017-03-14 15:12 | PROGRESS NOTE ---
DATE: 03/14/2017 SUBJECTIVE: He says he feels okay. No more nausea with NGT to gravity. No more abdominal distention or pain. OBJECTIVE: Vital Signs: No fevers. Pulse has been in the 70s, blood pressure 94/49 this morning. Oxygen saturation 95% on 2 L. General: He is alert, in no acute distress. Abdomen: Mildly distended, but improve,. Incision was clean, dry and intact. LABS: White count is down to 11, hematocrit 31, platelets are 444. Creatinine 0.9 and glucose is 128. ASSESSMENT/PLAN: A 76-year-old male status post small bowel resection with delayed closure for small bowel ischemia. Will continue to monitor NGT output awaiting return of bowel function. Continue TPN Physical therapy cc: MD Salvatore Márquez MD MTDD
[2017-03-14] MEDS: LOVENOX SUBQ SCH (16:04)
[2017-03-14] MEDS: MUCOMYST 20% INH SCH (19:25)
[2017-03-15] MEDS: MORPHINE IV PRN ×2 (02:49→20:17)
[2017-03-15] MEDS: DUONEB (A & A) INH SCH ×4 (04:24→19:18)
[2017-03-15 05:39] LABS: HEMATOCRIT 29.5 % (42.0-52.0); HEMOGLOBIN 9.6 g/dL (14.0-18.0); MCH 30.4 PG (27-31); MCHC 32.5 g/dL (33-37); MCV 93.4 FL (81-99); MPV 9.2 FL (7.4-10.4); RBC 3.16 XMIL (4.7-6.1)
[2017-03-15 06:19] LABS: AGAP 10; ALBUMIN 2.2 g/dL (3.5-5.0); ALKALINE PHOSPHATASE 59 U/L (32-122); BUN 16 mg/dL (8-22); CHLORIDE 104 mmol/L (98-107); COSMO 283; GOT 25 U/L (10-34); GPT 13 U/L (10-44); POTASSIUM 3.2 mmol/L (3.5-5.1); SODIUM 140 mmol/L (136-145); TCO2 26 mmol/L (25-35); TOTAL BILIRUBIN 0.35 mg/dL (0.20-1.00); TOTAL PROTEIN 5.3 g/dL (6.3-8.3)
[2017-03-15] MEDS: D10W 1,000 ML IV SCH (07:04)
[2017-03-15] MEDS: MUCOMYST 20% INH SCH ×2 (08:14→19:17)
[2017-03-15] MEDS: PROTONIX IV SCH (08:17)
[2017-03-15] MEDS: LOPRESSOR PO SCH ×2 (08:17→20:17)
--- NOTE | 2017-03-15 11:28 | PROGRESS NOTE ---
DATE: 03/15/2017 SUBJECTIVE: The patient denies any significant pain, nausea, or vomiting. He is passing gas and had a bowel movement. OBJECTIVE: Vital signs: He is afebrile. Vital signs are stable. General: Alert and oriented x4, in no acute distress. CV: Regular rate and rhythm. Respiratory: No work of breathing. GI: Soft and nondistended, appropriately tender. LABORATORY: White blood cell count 8, hemoglobin 9.6. Electrolytes reviewed and unremarkable. ASSESSMENT AND PLAN: A 76-year-old male status post ileocecectomy. He has had a prolonged ileus. This appears to be resolving. We will start him on a clear liquid diet today. cc: MD Salvatore Chávez MD
[2017-03-15] MEDS ORDERED: LASIX IV ONE (12:45)
[2017-03-15] MEDS: STERILE WATER INJ. INJ SCH (12:52)
--- NOTE | 2017-03-15 13:05 | PROGRESS NOTE ---
DATE: 03/15/2017 SUBJECTIVE: He reports he is tolerating oral intake. No chest pain. No palpitations. PHYSICAL EXAMINATION: Vital Signs: He is afebrile. Heart rate is 71. Blood pressure 129/67. General: No acute distress. Cardiovascular: He is in a regular rate and rhythm. Current telemetry shows sinus rhythm. He does have a 2/6 crescendo/decrescendo murmur best heard at the right upper sternal border. Respiratory: No increased work of breathing. Abdomen: Soft, nontender, nondistended. No obvious organomegaly. Skin: Warm and dry throughout without any rashes. Neurological: Moving all extremities well. Cranial nerves 2-12 are intact without any sensation deficits. Psychiatric: Alert and oriented, pleasant. Normal mood and affect. PERTINENT DATA: White count 8.4, hematocrit 29.5, platelet count 378,000. Sodium 140, potassium 3.2, BUN 16, creatinine 0.8. ASSESSMENT: 1. Atrial fibrillation. 2. Hypokalemia. PLAN: Patient currently is maintaining sinus rhythm. I would not change his medications presently. I will add in some potassium to be given today IV and check a magnesium level in the morning. cc: MD Salvatore Ngo MD
[2017-03-15] MEDS: POTASSIUM CHLORIDE 20 MEQ/SWI 20 MEQ/100 ML IVPB IV SCH ×2 (13:45→15:46)
[2017-03-15] MEDS ORDERED: SALINE LOCK IV FLUID XX ONE (15:24)
[2017-03-15] MEDS: LOVENOX SUBQ SCH (17:22)
[2017-03-16] MEDS: DUONEB (A & A) INH SCH ×3 (03:19→21:00)
[2017-03-16 04:55] LABS: AGAP 12; ALBUMIN 2.3 g/dL (3.5-5.0); ALKALINE PHOSPHATASE 59 U/L (32-122); BUN 12 mg/dL (8-22); CHLORIDE 103 mmol/L (98-107); COSMO 275; GOT 21 U/L (10-34); GPT 13 U/L (10-44); SODIUM 138 mmol/L (136-145); TCO2 23 mmol/L (25-35); TOTAL BILIRUBIN 0.42 mg/dL (0.20-1.00); TOTAL PROTEIN 5.5 g/dL (6.3-8.3)
[2017-03-16] MEDS: PROTONIX PO SCH (06:39)
[2017-03-16] MEDS: LOPRESSOR PO SCH ×2 (08:49→20:15)
--- NOTE | 2017-03-16 09:38 | PROGRESS NOTE ---
DATE: 03/16/2017 SUBJECTIVE: The patient denies severe pain. No nausea, no vomiting. He is passing gas and tolerating some sips of clears. OBJECTIVE: Vital Signs: He is afebrile. Vital signs are stable. General: He is alert and oriented x3. No acute distress. GI: Soft, nondistended. He does have bowel sounds. Nontender. Incision is clean, dry, and intact. Laboratory: Electrolytes were reviewed and unremarkable except for a potassium that is slightly low. ASSESSMENT AND PLAN: This is a 76-year-old male status post exploratory laparotomy with ileus, cecectomy. He is making improvement. We are going to advance him to full liquids today. We will replace his potassium. cc: MD Salvatore Chávez MD
[2017-03-16] MEDS: KLOR-CON POWDER PACKET PO SCH ×2 (10:55→20:15)
--- NOTE | 2017-03-16 13:39 | Diag Imaging Result Doc PS360 ---
EXAM: CHEST-2 VIEWS INDICATION: abnormal exam TECHNIQUE: 2 views COMPARISON: 03/13/2017 FINDINGS: There has been interval removal of the NG tube and right PICC line. There is a stable small left pleural effusion with left basilar atelectasis. There is mild subsegmental atelectasis in the right lower lung zone as well that also appears stable. The right upper lung zone consolidation continues to improve. There is perhaps residual scarring in this region. Cardiac silhouette is stable. IMPRESSION: 1.Overall improvement of consolidation in right upper lung zone but there may be mild residual scarring in this region. 2.Essentially stable small left pleural effusion and bibasilar atelectasis. Electronically signed by Gallo Stallings 03/16/2017 1:36 PM
[2017-03-16] MEDS: LASIX IV SCH ×2 (14:47→20:15)
[2017-03-16] MEDS: MUCOMYST 20% INH SCH ×2 (15:51→20:10)
[2017-03-16] MEDS: LOVENOX SUBQ SCH (20:15)
[2017-03-17] MEDS: DUONEB (A & A) INH SCH ×4 (03:14→20:20)
[2017-03-17] MEDS: PROTONIX PO SCH (06:29)
[2017-03-17] MEDS: MUCOMYST 20% INH SCH ×2 (08:02→20:20)
[2017-03-17 08:05] LABS: BASO% 0.6 % (0.0-0.8); EOS# 0.51 X1000 (0.0-0.7); EOS% 5.8 % (0.0-10.0); HEMATOCRIT 32.8 % (42.0-52.0); HEMOGLOBIN 10.6 g/dL (14.0-18.0); IMM GRAN# 0.02 X1000 (0.0-0.04); IMM GRAN% 0.2 % (0.0-0.5); LYMPH# 2.19 X1000 (1.2-3.4); LYMPH% 24.9 % (20.5-51.1); MANUAL DIFF NEEDED? YES; MCH 29.5 PG (27-31); MCHC 32.3 g/dL (33-37); MCV 91.4 FL (81-99); MONO# 1.14 X1000 (0.11-0.59); MONO% 12.9 % (1.7-9.3); MPV 9.8 FL (7.4-10.4); NEUT% 55.6 % (42.2-75.2); PLT 434 X1000 (130-400); RBC 3.59 XMIL (4.7-6.1)
[2017-03-17 08:10] LABS: MAGNESIUM 1.8 mg/dL (1.5-2.7)
[2017-03-17] MEDS: LOPRESSOR PO SCH ×2 (08:27→20:29)
[2017-03-17] MEDS: KLOR-CON POWDER PACKET PO SCH ×2 (08:27→20:29)
[2017-03-17 08:37] LABS: EOS 5 % (1-10); LYMPHS 30 % (21-51); MONO 8 % (1-9)
[2017-03-17 08:55] LABS: AGAP 14; ALBUMIN 2.6 g/dL (3.5-5.0); ALKALINE PHOSPHATASE 66 U/L (32-122); BUN 11 mg/dL (8-22); CALCIUM 8.4 mg/dL (8.8-10.2); CHLORIDE 103 mmol/L (98-107); COSMO 282; GOT 19 U/L (10-34); GPT 14 U/L (10-44); SODIUM 142 mmol/L (136-145); TCO2 25 mmol/L (25-35); TOTAL BILIRUBIN 0.44 mg/dL (0.20-1.00); TOTAL PROTEIN 6.1 g/dL (6.3-8.3)
[2017-03-17] MEDS ORDERED: KLOR-CON PO ONE (09:18)
--- NOTE | 2017-03-17 19:33 | PROGRESS NOTE ---
DATE: 03/17/2017 SUBJECTIVE: He is doing very well. He is tolerating a full liquid diet with Ensures, working with physical therapy. He is having bowel function. No nausea, vomiting. Overall doing very well. Minimal pain. OBJECTIVE: No fevers. No tachycardia. Blood pressure 141/71, O2 saturation 97 % on nasal cannula. He is alert and oriented. Abdomen soft, nontender, nondistended. Incision is healing well. DATA: White count 8, hematocrit 32. Potassium still low at 3 despite repletion creatinine 0.8. ASSESSMENT/PLAN: 76-year-old male status post ileocecostomy for small bowel ischemia. He is doing very well. I think he is ready for discharge. Social work is going to see the patient and make arrangements possible rehab versus home with home health pending physical therapy evaluation otherwise will start paperwork and work towards this in next 24 to 48 hours as this is arranged. I will plan to remove fransisco before he goes. cc: MD Salvatore Márquez MD MTDD
[2017-03-17] MEDS: LOVENOX SUBQ SCH (20:29)
[2017-03-18] MEDS: DUONEB (A & A) INH SCH ×3 (03:34→15:34)
[2017-03-18] MEDS: PROTONIX PO SCH (06:03)
[2017-03-18 06:06] LABS: AGAP 11; ALBUMIN 2.7 g/dL (3.5-5.0); ALKALINE PHOSPHATASE 69 U/L (32-122); BUN 13 mg/dL (8-22); CALCIUM 8.4 mg/dL (8.8-10.2); CHLORIDE 104 mmol/L (98-107); COSMO 279; GOT 17 U/L (10-34); GPT 13 U/L (10-44); POTASSIUM 3.6 mmol/L (3.5-5.1); SODIUM 140 mmol/L (136-145); TCO2 25 mmol/L (25-35); TOTAL BILIRUBIN 0.42 mg/dL (0.20-1.00); TOTAL PROTEIN 5.9 g/dL (6.3-8.3)
[2017-03-18] MEDS: LOPRESSOR PO SCH (08:30)
[2017-03-18] MEDS: KLOR-CON POWDER PACKET PO SCH (08:30)
[2017-03-18] MEDS: MUCOMYST 20% INH SCH (09:22)
--- NOTE | 2017-03-18 11:35 | DISCHARGE SUMMARY ---
ADMISSION DATE: 02/24/2017 DISCHARGE DATE: SUBJECTIVE: He feels well. He is tolerating a diet. He is having bowel function. He is voiding without his Zeng and ready to go home. His strength is improving but he is still quite weak. I had a long discussion with patient's family, social service director yesterday. They have elected to take him home with home health. He has got dedicated family members who are taking time off of work to care for him and who work in the medical field and I think this will be a good option versus a halfway facility. HISTORY OF PRESENT ILLNESS: This is a 76-year-old male who presented to the emergency department with acute abdomen, found to have a small bowel ischemia. He has also got critical aortic stenosis. It is felt to be related to likely cardioembolic from atrial fibrillation which he was in at the time of his presentation. For details of his operative courses, please see his dictated operative notes but he ultimately underwent an ileal resection with delayed abdominal closure with subsequent washout and due to hemodynamic instability was temporarily closed again and ultimately closed after an ileocecectomy with a small bowel to right colon anastomosis. His gallbladder was taken at the same time. He did well following this. Initially remain intubated but was extubated and weaned off the pressures shortly thereafter from his abdominal closure. He had a prolonged ileus for greater than a week requiring NG tube replacement. He was having bowel obstruction but was not tolerating clamping of his NG tube. This was ultimately removed and his diet was advanced. He progressed in physical therapy but is quite weak and debilitated. His atrial fibrillation was ultimately controlled and transitioned to oral medicines with help of the Cardiology service. He was moved out of ICU to a step-down for his ongoing rehabilitation. He did have some leukocytosis and was started on antibiotics although there was no real clear source to this and he never really developed signs of intra-abdominal abscess but all his peripheral and PICC lines were removed which he had in place for TPN until enteral nutrition was established. His white count was normal on the day of his discharge down to 8. Hematocrit was 32. His potassium had been low. He had been getting IV and oral replacement and was up to 3.6 on the day of his discharge. Glucoses have been okay and his creatinine 0.7. Albumin was 2.7 on the day of his discharge which is the best it had been really since his admission. His pre-albumin was up to 21.5 on 03/10. His chest x-ray was clear on day of discharge. He was cell felt safe. DISCHARGE MEDICATION: He continued taking this medication. We decreased his metoprolol dose from his home dose down to 12.5 b.i.d. for his rate control, his atrial fibrillation. I also gave him a prescription for 20 mEq of extended released potassium chloride to take daily for the next 10 days and he continued taking his other home medications. I removed his fransisco on the day of his discharge and he can see me back in my office in the next 1-2 weeks. I have discussed a GI soft diet with the family and the patient, and with addition of Ensure supplements and he will continue these at home. If he develops fevers, worsening abdominal pain, nausea, vomiting, changes in bowel habits he will call my office, or redness and drainage from his wound. Otherwise we have home health for physical therapy. He has got a hospital bed and bedside commode and a walker at home and family members who he stays with and will take care of him 24 hours. cc: MD Salvatore Márquez MD
[2017-03-18 11:56] VITALS: BP 122/63
== END 2017-03-18 16:10 | disposition home health service (06) ==
LOC: ED 20:54 → ICU 02-24 02:15 → 3S 03-13 12:31
PROVIDERS: ADMIT Family Medicine; ATTEND Surgery

== ENCOUNTER 2019-01-11 19:09 | Observation (INO) ==
[2019-01-11] MEDS ORDERED: ASPIRIN PO ONE (19:32)
[2019-01-11] MEDS ORDERED: ASPIRIN ONE (19:34)
--- NOTE | 2019-01-11 19:55 | Diag Imaging Result Doc PS360 ---
EXAM: CHEST-2 VIEWS HISTORY: CP TECHNIQUE: Chest two views COMPARISON: 10/19/2017 FINDINGS: The lungs are hyperexpanded. The heart is not enlarged. The vessels are small. There are no infiltrates. No pleural effusions. IMPRESSION: Emphysema Electronically signed by Abhijeet Kc 01/11/2019 7:52 PM
[2019-01-11 20:36] LABS: BASO# 0.09 X1000 (0.0-0.2); BASO% 1.2 % (0.0-0.8); EOS# 0.22 X1000 (0.0-0.7); EOS% 2.8 % (0.0-10.0); HEMATOCRIT 38.7 % (42.0-52.0); HEMOGLOBIN 12.2 g/dL (14.0-18.0); LYMPH# 2.59 X1000 (1.2-3.4); LYMPH% 33.3 % (20.5-51.1); MCH 25.9 PG (27-31); MCHC 31.5 g/dL (33-37); MCV 82.2 FL (81-99); MONO# 0.99 X1000 (0.11-0.59); MONO% 12.7 % (1.7-9.3); MPV 9.9 FL (7.4-10.4); NEUT# 3.88 X1000 (1.4-6.5); PLT 263 X1000 (130-400); RBC 4.71 XMIL (4.7-6.1); RDW 15.8 % (11.5-14.5); WBC 7.77 X1000 (4.8-10.8)
[2019-01-11 20:41] LABS: INR 0.96; PROTIME 13.5 Seconds (11.0-16.0)
[2019-01-11 20:42] LABS: PTT 32.1 Seconds (22.3-41.8)
[2019-01-11 20:48] LABS: AGAP 9; ALB/GLOB RATIO 1.3; ALKALINE PHOSPHATASE 85 U/L (32-122); BUN 13 mg/dL (8-22); CALCIUM 9.3 mg/dL (8.8-10.2); CHLORIDE 102 mmol/L (98-107); CK PROFILE 83 U/L (24-204); COSMO 283; CREATININE 0.8 mg/dL (0.7-1.2); ESTIMATED GFR > 60; GLUCOSE 100 mg/dL (70-104); GOT 19 U/L (10-34); GPT 13 U/L (10-44); POTASSIUM 3.5 mmol/L (3.5-5.1); SODIUM 142 mmol/L (136-145); TCO2 31 mmol/L (25-35); TOTAL BILIRUBIN 0.33 mg/dL (0.20-1.00); TOTAL PROTEIN 7.1 g/dL (6.3-8.3)
[2019-01-11] MEDS ORDERED: MORPHINE IV ONE (22:53)
[2019-01-11] MEDS ORDERED: NITROGLYCERIN TOP ONE (22:53)
[2019-01-11] MEDS ORDERED: ZOFRAN IV ONE (22:53)
--- NOTE | 2019-01-11 23:17 | PROVIDER DOCUMENTATION ---
This chart was entered by Roopa Stallings Scribe, acting as scribe for Krishan Leon MD. HPI-Chest Pain - General Chief Complaint: Chest Pain Stated Complaint: CHEST PAIN/TIGHTNESS/DIZZY Time Seen by Provider: 01/11/19 20:45 Source: patient, family Allergies/Adverse Reactions: Patient Allergies Allergy/AdvReac Type Severity Reaction Status Date / Time lorazepam [From Ativan] AdvReac Severe increased Verified 10/19/17 20:57 agitation Penicillins AdvReac Unknown Verified 10/19/17 20:57 Home Medications: Home Medication List Medication Instructions Recorded Confirmed Last Taken Type Aspirin 81 mg PO DAILY 10/19/15 10/19/17 10/18/17 History Benazepril/Hydrochlorothiazide 1 each PO DAILY PRN 10/19/15 10/19/17 02/22/17 History [Benazepril-Hctz 20-12.5 mg Tab] Donepezil [Aricept] 10 mg PO DAILY 10/19/15 10/19/17 10/18/17 History Tiotropium [place] Inhaler 1 puff INH RTDAILY 10/19/15 10/19/17 02/22/17 History [Spiriva] Clopidogrel Bisulfate [Plavix] 75 mg PO DAILY 02/23/17 10/19/17 10/18/17 History Potassium Chloride E.r. [Klor-Con] 20 meq PO DAILY #10 tablet 03/18/17 10/19/17 10/18/17 Rx ATORVAstatin [Lipitor] 40 mg PO DAILY 10/19/17 10/19/17 10/18/17 History Codeine Phosphate/Guaifenesin 5 ml PO Q4H PRN #100 liquid 10/19/17 Unknown Rx [Guaifen-Codeine 100-10 mg/5 ml] Hydrocodone Bit/Acetaminophen 1 ea PO Q6H PRN #7 tab 10/19/17 Unknown Rx [Hydrocodon-Acetaminoph 7.5-325] Pregabalin [Lyrica] 50 mg PO DAILY 10/19/17 10/19/17 10/19/17 History - History of Present Illness-CP Nature of Presenting Problem: 78 yom presents w/family w/co around [id number], pt went to get in truck and felt sharp, tightness all over chest. pt states pain 10. pt states chest sill tight in er but pain not as severe. pt denies sob, nvd. pt has hx of heart sx w/ Dr. Torres in [facility]. pt has mechanical valve and calcium buildup so no stents. pt also has hx copd, former soker, quit 2-3 yrs ago. pt denies taking blood thinners but is on plavix and takes aspirin. Location: reports: other (generalized) Chest Pain Radiation: reports: no radiation Quality of Pain: reports: sharp, tightness Severity in ED: mild Onset/Duration: 4-6 hours ago Timing: improving Context/Activities at Onset: reports: light activity Review of Systems - Adult - REVIEW OF SYSTEMS - ADULT Constitutional: reports: no symptoms reported. denies: chills, fever Eyes: reports: no symptoms reported Ears, Nose, Mouth & Throat: reports: no symptoms reported Cardiovascular: reports: see HPI, chest pain (generalized). denies: pa lpitations, poor circulation, syncope Respiratory: reports: no symptoms reported. denies: pleurisy, shortness of breath, wheezing Gastrointestinal: reports: no symptoms reported. denies: diarrhea, nausea, vomiting Genitourinary: reports: no symptoms reported Musculoskeletal: reports: no symptoms reported Integumentary: reports: no symptoms reported Neurological: reports: no symptoms reported Psychiatric: reports: no symptoms reported Endocrine: reports: no symptoms reported Hematologic/Lymphatic: reports: no symptoms reported Allergic/Immunologic: reports: no symptoms reported All Other Systems: Reviewed and Negative Past History - Adult - PAST MEDICAL HISTORY-ADULT Review of Records: reports: Old Records Reviewed, Nursing Assessment Review, Medications Reviewed, Social history reviewed & non-contributory. Major Childhood Illnesses: reports: denies history Cardiovascular: reports: HTN, heart valve problem Respiratory: reports: COPD Gastrointestinal: reports: denies history Obstetrical/Gynecological: reports: denies history Genitourinary: reports: denies history Musculoskeletal: reports: denies history Neurological: reports: denies history Endocrine/Immune: reports: denies history Other Conditions: reports: denies history - PRIOR SURGERIES/PROCEDURES Surgical/Procedure History: reports: recent surgery (aortic valve replacement 10/09/17), appendectomy, cholecystectomy, hernia repair, other (taver) - IMMUNIZATION STATUS Childhood Immunizations: See Nurse Assessment Flu Vaccine: See Nurse Assessment - FAMILY HISTORY Family History: reviewed, not pertinent - SOCIAL HISTORY Smoking: quit greater than 1 year, other (former) Substance Use: none/never Physical Exam-General - PHYSICAL EXAM-ADULT Initial Vital Signs Reviewed: Yes - CONSTITUTIONAL General Appearance: appears well, alert, no apparent distress - EYES Eyes: PERRL/EOMI - HEAD, EARS, NOSE, MOUTH & THROAT HENMT: normocephalic/atraumatic, moist mucous membranes, normal ENT inspection - NECK Neck: non-tender, full range of motion, supple, normal inspection - RESPIRATORY Respiratory: chest non-tender, normal breath sounds, rales (bilat). negative: lungs clear, rhonchi, stridor, wheezing - CARDIOVASCULAR Cardiovascular: normal peripheral pulses, no edema, no gallop, no JVD, systolic murmur (2/6). negative: regular rate, rhythm, no murmur, JVD, bradycardia, tachycardia - GASTROINTESTINAL (ABDOMEN) Abdominal Exam: normal bowel sounds, non tender, soft - LYMPHATIC Lymphatic: no adenopathy - MUSCULOSKELETAL Back Exam: normal inspection, no CVA tenderness, no vertebral tenderness Extremity: normal range of motion, non-tender, normal inspection Peripheral Pulses: radial (R): 2+, radial (L): 2+ - SKIN Integumentary: normal color, normal turgor, warm/dry - NEUROLOGIC Neurologic: tiller man II-XII nml as tested, grossly normal, no motor/sensory deficits - PSYCHIATRIC Psych/Mental Status: normal mood/affect, normal thought content, normal thought process, oriented x 3 Progress - PLAN OF CARE/RESULTS Progress/Plan/Lab Results: Laboratory Results - last 24 hr 01/11/19 01/11/19 01/11/19 19:36 19:36 19:36 WBC 7.77 RBC 4.71 Hgb 12.2 L Hct 38.7 L MCV 82.2 MCH 25.9 L MCHC 31.5 L RDW Std Deviation 15.8 H Plt Count 263 MPV 9.9 Immature Gran % (Auto) 0.0 Neut % (Auto) 50.0 Lymph % (Auto) 33.3 [place] % (Auto) 12.7 H Eos % (Auto) 2.8 Baso % (Auto) 1.2 H Immature Gran # (Auto) 0.00 Neut # (Auto) 3.88 Lymph # (Auto) 2.59 [place] # (Auto) 0.99 H Eos # (Auto) 0.22 Baso # (Auto) 0.09 PT INR PTT (Actin FS) Sodium 142 Potassium 3.5 Chloride 102 Carbon Dioxide 31 Anion Gap 9 BUN 13 Creatinine 0.8 Estimated GFR/1.73 m2 > 60 BUN/Creatinine Ratio 16 Glucose 100 Calculated Osmolality 283 Calcium 9.3 Total Bilirubin 0.33 AST 19 ALT 13 Alkaline Phosphatase 85 Creatine Kinase 83 Troponin T Epi-G-Iwsbzgxrjvo Pept 978 H Total Protein 7.1 Albumin 4.0 Globulin 3.1 Albumin/Globulin Ratio 1.3 01/11/19 01/11/19 19:36 19:36 WBC RBC Hgb Hct MCV MCH MCHC RDW Std Deviation Plt Count MPV Immature Gran % (Auto) Neut % (Auto) Lymph % (Auto) [place] % (Auto) Eos % (Auto) Baso % (Auto) Immature Gran # (Auto) Neut # (Auto) Lymph # (Auto) [place] # (Auto) Eos # (Auto) Baso # (Auto) PT 13.5 INR 0.96 PTT (Actin FS) 32.1 Sodium Potassium Chloride Carbon Dioxide Anion Gap BUN Creatinine Estimated GFR/1.73 m2 BUN/Creatinine Ratio Glucose Calculated Osmolality Calcium Total Bilirubin AST ALT Alkaline Phosphatase Creatine Kinase Troponin T < 0.010 Dle-B-Rewlhtigjis Pept Total Protein Albumin Globulin Albumin/Globulin Ratio Orders Category Date Time Status Cardiac Monitoring DIRECTED Care 01/11/19 19:32 Active Oxygen Therapy- ED Nursing DIRECTED Care 01/11/19 19:32 Active Saline Loc NOW Care 01/11/19 19:32 Active Saline Loc NOW Care 01/11/19 22:53 Active CHEST-2 VIEWS [RAD] Stat Exams 01/11/19 19:32 Completed CBC WITH ELECTRONIC DIFF [HEME] Stat Lab 01/11/19 19:36 Completed CK PROFILE [SP CHEM] Stat Lab 01/11/19 19:36 Completed COMPREHENSIVE METABOLIC PANEL [CHEM] Stat Lab 01/11/19 19:36 Completed PRO B-NATRIURETIC PEPTIDE Stat Lab 01/11/19 19:36 Completed PROTIME WITH INR [COAG] Stat Lab 01/11/19 19:36 Completed PTT [COAG] Stat Lab 01/11/19 19:36 Completed TROPONIN T Stat Lab 01/11/19 19:36 Completed Aspirin Med 01/11/19 19:34 Discontinued 325 mg .ROUTE .STK-MED ONE Aspirin Med 01/11/19 19:32 Discontinued 325 mg PO NOW ONE Morphine Med 01/11/19 22:53 Discontinued 4 mg IV NOW ONE Nitroglycerin Med 01/11/19 22:53 Discontinued 1 inch TOP NOW ONE Ondansetron [Zofran] Med 01/11/19 22:53 Discontinued 4 mg IV NOW ONE CP/SOB/Palp >45 yrs of Age Stat Oth 01/11/19 19:32 Ordered EKG [EKG] Stat Ther 01/11/19 19:22 Ordered Result Diagrams: 01/11/19 19:36 01/11/19 19:36 - REASSESSMENT Reassessment #1 Time Reassessed: 20:20 (paged Dr. lee to discuss pt ) Status: unchanged Reassessment #2 Time Reassessed: 23:00 (discussed pt w/dr. lee ) Status: unchanged - EKG 1 Time of EKG reading by physician:: 19:40 EKG Read and Signed by:: Krishan Leon EKG Interpretation (*Must complete 3 of following elements*): Abnormal Rate: 75 Rhythm: NSR QRS: RBB UT Interval: normal - XRAY 1 XRAY: Bilateral XRAY Study: Chest ( EXAM: CHEST-2 VIEWS HISTORY: CP TECHNIQUE: Chest two views COMPARISON: 10/19/2017 FINDINGS: The lungs are hyperexpanded. The heart is not enlarged. The vessels are small. There are no infiltrates. No pleural effusions. IMPRESSION: Emphysema Electronically signed by Abhijeet Kc 01/11/2019 7:52 PM) Comparison with other Films: changes noted Departure - Departure Date of Disposition Decision: 01/11/19 Time of Disposition Decision: 23:15 DIAGNOSIS: Chest pain at rest, CAD (coronary artery disease), COPD (chronic obstructive pulmonary disease), History of prosthetic aortic valve replacement Disposition: ADMITTED INPATIENT 09 Certified Medical Emergency: Emergent Condition: Stable Referrals and Follow-Ups: Hamida English MD [Primary Care Provider] - - Critical Care Note This patient required my direct & personal management of CC.: No Attestation - Physician/ CHLOE Attestation Patient care was provided by Advanced Practice Provider:: No The physician spent face to face time with patient:: Yes Advanced Practice Provider documentation review:: Supervising physician onsite and consulted in the evaluation and care of this patient. The physician did have a face to face encounter with the patient. This chart was documented by the indicated scribe, (Roopa Stallings, Rosario) and accurately reflects the services I performed and decisions made by me, Krishan Leon MD, as attested by the provider's signature.
[2019-01-12] MEDS: DUONEB (A & A) INH SCH ×6 (00:32→23:25)
[2019-01-12] MEDS ORDERED: ZOFRAN IV PRN (00:32)
[2019-01-12] MEDS ORDERED: TYLENOL PO PRN (00:32)
[2019-01-12] MEDS ORDERED: MORPHINE IV PRN (00:32)
[2019-01-12 01:09] LABS: AGAP 12; BUN 14 mg/dL (8-22); CALCIUM 9.5 mg/dL (8.8-10.2); CHLORIDE 104 mmol/L (98-107); CK PROFILE 84 U/L (24-204); COSMO 285; CREATININE 0.7 mg/dL (0.7-1.2); ESTIMATED GFR > 60; GLUCOSE 86 mg/dL (70-104); POTASSIUM 3.8 mmol/L (3.5-5.1); SODIUM 143 mmol/L (136-145); TCO2 27 mmol/L (25-35)
--- NOTE | 2019-01-12 01:10 | HISTORY AND PHYSICAL ---
DATE OF SERVICE: 01/11/2019. PRIMARY CARE PHYSICIAN: Dr. Hamida English MD. CHIEF COMPLAINT: Chest pain. HISTORY OF PRESENT ILLNESS: The patient is a 78-year-old male with a history of COPD, dementia and hyperlipidemia who presented to the emergency department with a 1-day history of having soft substernal chest pain. The patient states that he was mildly short of breath and he states the pain went throughout his chest. He states he had some mild nausea. He was evaluated in the emergency department due to his presenting symptoms, he will need admission for further management. At the time of my examination he had denied any headache, visual changes, fevers, chills, hemoptysis, melena, weight changes, but complained of chest pain. PAST MEDICAL HISTORY: Includes hyperlipidemia, dementia, COPD. PAST SURGICAL HISTORY: Aortic valve replacement, abdominal surgery, back surgery, cataract surgery. ALLERGIES: Penicillin, Ativan. CURRENT MEDICATIONS: Include aspirin 81 mg p.o. daily, Lipitor 40 mg p.o. daily, benazepril hydrochlorothiazide 1 tablet daily, Plavix 75 mg p.o. daily, Aricept 10 mg p.o. daily, Lyrica 50 mg p.o. daily. SOCIAL HISTORY: He is a former smoker. No history of alcohol or illicit drug use. FAMILY HISTORY: No history of coronary disease. REVIEW OF SYSTEMS: A 14 point review of systems is as in the HPI, other systems negative. PHYSICAL EXAMINATION: GENERAL: A cooperative friendly male, he is resting more comfortably now. VITAL SIGNS: Are still pending. HEENT: Atraumatic, normocephalic. Extraocular movements intact. PERRLA. NECK: No masses. CHEST: Clear to auscultation. CARDIOVASCULAR: Regular rate and rhythm. ABDOMEN: Soft. Positive bowel sounds. EXTREMITIES: No edema. NEUROLOGIC: He is awake, alert and oriented x3. : No bladder distention. SKIN: Warm. LABORATORIES AND STUDIES: WBC 7.77, hemoglobin 12.2, hematocrit 38.7, platelets 263,000. Sodium 142, potassium 3.5, chloride 102, CO2 is 31, BUN is 13, creatinine 0.8, glucose is 100, troponin is 0.010. Chest x-ray shows emphysema. ASSESSMENT: The patient a 78-year-old male with a history of a chronic obstructive pulmonary disease, dementia, hypertension, and hyperlipidemia who had presented to the emergency department with a 1-day history of having chest pain. We will place the patient for observation for further evaluation and management. 1. Chest pain is atypical. 2. Chronic obstructive pulmonary disease. 3. Hyperlipidemia. 4. Hypertension. 5. Dementia. PLAN: 1. We will admit the patient to the medical floor with telemetry. 2. Continue with cardiac workup, check EKG and serial cardiac enzymes, have the patient continued on aspirin. We will use sublingual nitroglycerin and morphine p.r.n. chest pain. 3. We will continue with DuoNebs p.r.n. 4. Restart his home medications. 5. Monitor blood pressure closely. 6. Put the patient on DVT prophylaxis with SCDs. 7. We will continue to follow, reassess and make further recommendation based on the patient's clinical course. cc: Tyler Roe MD
[2019-01-12] MEDS: PRILOSEC PO SCH (06:57)
--- NOTE | 2019-01-12 07:36 | EKG Report ---
Test Performed on : 01/11/2019 7:24:48 PM Test Reason : CP Blood Pressure : / mmHG Vent. Rate : 075 BPM Atrial Rate : 075 BPM P-R Int : 178 ms QRS Dur : 152 ms QT Int : 436 ms P-R-T Axes : 000 031 -03 degrees QTc Int : 486 ms Normal sinus rhythm. Right bundle branch block Abnormal ECG When compared with ECG of 25-FEB-2017 05:44, MA interval has decreased T wave inversion less evident in Anterior leads Unconfirmed Result
[2019-01-12] MEDS ORDERED: ASPIRIN PO SCH (09:00)
[2019-01-12 11:36] LABS: BASO# 0.05 X1000 (0.0-0.2); BASO% 0.6 % (0.0-0.8); EOS# 0.24 X1000 (0.0-0.7); EOS% 2.7 % (0.0-10.0); HEMATOCRIT 37.3 % (42.0-52.0); HEMOGLOBIN 11.6 g/dL (14.0-18.0); LYMPH# 2.38 X1000 (1.2-3.4); LYMPH% 26.8 % (20.5-51.1); MCH 25.7 PG (27-31); MCHC 31.1 g/dL (33-37); MCV 82.5 FL (81-99); MONO# 0.72 X1000 (0.11-0.59); MONO% 8.1 % (1.7-9.3); MPV 9.8 FL (7.4-10.4); NEUT# 5.49 X1000 (1.4-6.5); NEUT% 61.8 % (42.2-75.2); PLT 248 X1000 (130-400); RBC 4.52 XMIL (4.7-6.1); RDW 15.8 % (11.5-14.5); WBC 8.88 X1000 (4.8-10.8)
--- NOTE | 2019-01-12 11:37 | CARDIOLOGY CONSULTATION ---
DATE: 01/12/2019 CHIEF COMPLAINT ON PRESENTATION: Chest pain. HISTORY OF PRESENT ILLNESS: Mr. Mac is a 78-year-old male with a history of COPD, severe aortic stenosis treated with a transfemoral aortic valve replacement in September 2017, as well as a history of coronary artery disease. He presented for an episode of chest pain that occurred yesterday afternoon. It occurred while he was getting back in his truck. The patient is not able to provide any history regarding the duration of symptoms. He cannot discriminate whether it happen for seconds, minutes, or hours. He said he went down to his knees and was leaning over into his truck for some unknown period of time. He said the event was not witnessed by anybody else. It felt like a stabbing pain in the epigastric/lower sternal area and radiated in a band- like distribution across the lower chest. There did not sound to be any sort of exertional component or any other associated symptoms. After that, the patient got in his truck and drove around little while. Prior to that, he was in his usual state of health and was not having any issues. PAST MEDICAL HISTORY: Significant for: 1. Coronary artery disease. His last cardiac catheterization was performed in October 2015. This demonstrated a right coronary that was dominant with diffuse calcific calcifications up to around 60% in the middle 3rd of the vessel. Distal right coronary shows a moderate calcification with the severity on the order of 60%. The left main has calcification at the ostium with around 20% stenosis. Left anterior descending is a very small, does not provide much to the apex. No significant stenosis in the LAD. Circumflex was normal. The left ventriculogram on that study was 70% to 75%. He had on that study a valve area of 0.9, a mean gradient of 33, and a peak to peak of 37. His last echocardiogram by our records in the hospital was February 2017, demonstrating a mean gradient of 42. It does not appear that the valve area was estimated on that study. Ejection fraction appeared to be at least 50%. It was a difficult study. Moderate mitral annular calcification with mild MR. 2. Hypertension, not currently on medications at home. 3. Dementia. 4. COPD with a [id number] tobacco use history. 5. Hyperlipidemia. 6. History of diabetes. SOCIAL HISTORY: He does not currently smoke. FAMILY HISTORY: Significant for hypertension. REVIEW OF SYSTEMS: A 10 system review of systems is negative, except for those things mentioned in HPI. PHYSICAL EXAMINATION: Vital Signs: He is afebrile, heart rate is 65, his blood pressures have had systolics mainly in the 140s to 160s here. General: He is in no acute distress. HEENT: Oropharynx is moist. Poor dentition. Eye examination shows pink conjunctivae and white sclerae. Neck: Examination shows no obvious thyromegaly or thyroid tenderness. Cardiovascular: He sounds to be in a regular rate and rhythm. I do not hear any audible murmurs. He has no S3. He has no lower extremity edema. He has no carotid bruits. Chest: Exam is clear to auscultation bilaterally. He has no increased work of breathing. Abdomen: Soft, nontender, nondistended. He has no obvious organomegaly. Skin: Warm and dry throughout without any rashes. Neurological: He is moving all extremities well. He has no lateralizing deficits. Psychiatric: He seems somewhat difficult to provide history. He does not seem able to give much detail. DATA: His electrocardiogram showed a sinus rhythm. Right bundle branch block. No acute signs of injury or ischemic changes. That was reviewed by me. His chest x-ray shows emphysematous chronic type changes, no acute infiltrates. His lab data shows white count is 7.7, his hematocrit is 38, his platelet count is 263,000. His sodium is 143, potassium 3.8, his BUN is 14, creatinine is 0.7. His troponins have been negative times multiple sets. His proBNP yesterday was 978. LDL was 53, his HDL was 51. ASSESSMENT: Mr. Mac is a 78-year-old gentleman with a history of dementia, severe aortic stenosis treated by transcatheter aortic valve replacement (TAVR), who presented with chest pain. PLAN: The history is somewhat limited secondary to the patient's inability to provide detailed information. At this point, I would proceed with myocardial perfusion imaging and an echo. He certainly requires aspirin therapy long-term. I would initiate a statin. He previously was on 40 mg at home, which I would continue. I will change his aspirin over to an 81 mg dose. His blood pressure has been elevated, and initially in him, I would try using amlodipine at a dose of 5 mg daily. Further recommendations to follow the results of the nuclear scan. cc: Jose Rafael Black MD
[2019-01-12] MEDS ORDERED: LEXISCAN ONE (14:01)
--- NOTE | 2019-01-12 16:23 | Diag Imaging Result Document ---
PROCEDURE NAME: MYOCARDIAL PERF SCAN, STR/REST - 01/12/2019 PROCEDURE: Lexiscan Cardiolite stress test. DESCRIPTION OF PROCEDURE IN DETAIL: Lexiscan was infused per standard protocol. There was no chest pain. Stress electrocardiogram was negative for ischemia. Cardiolite was injected. Total of 10.2 mCi of Cardiolite was injected for the rest phase; 30.5 mCi of Cardiolite was injected for the stress phase. Gated SPECT images were obtained in standard views. Images revealed chest wall attenuation and diaphragmatic attenuation. There is no evidence of ischemia. Normal left ventricular cavity size. There is low-grade fixed defect in the base of the inferior wall. This is more suggestive of attenuation defect. Low probability of scar. Left ventricular ejection fraction by gated SPECT was 65%. CONCLUSIONS: 1. No chest pain. 2. Negative Lexiscan stress electrocardiogram. 3. Myocardial perfusion images revealed no evidence of ischemia. 4. There is a low-grade, fixed defect in the base of the inferior wall suggestive of diaphragmatic attenuation. Low probability of scar. 5. Left ventricular ejection fraction by gated SPECT was 65%. cc: MD Sybil Childress PA
[2019-01-12] MEDS ORDERED: LIPITOR PO SCH (21:00)
[2019-01-13] MEDS: DUONEB (A & A) INH SCH ×3 (03:43→11:44)
[2019-01-13] MEDS: PRILOSEC PO SCH (06:02)
[2019-01-13 07:40] LABS: AGAP 9; BUN 14 mg/dL (8-22); CALCIUM 9.1 mg/dL (8.8-10.2); CHLORIDE 107 mmol/L (98-107); COSMO 293; CREATININE 0.8 mg/dL (0.7-1.2); ESTIMATED GFR > 60; GLUCOSE 98 mg/dL (70-104); POTASSIUM 3.6 mmol/L (3.5-5.1); SODIUM 147 mmol/L (136-145); TCO2 31 mmol/L (25-35)
[2019-01-13] MEDS ORDERED: ASPIRIN PO SCH ×2 (09:00)
[2019-01-13] MEDS ORDERED: LYRICA PO SCH (09:00)
[2019-01-13] MEDS ORDERED: NORVASC PO SCH (09:00)
[2019-01-13] MEDS ORDERED: ARICEPT PO SCH (09:00)
[2019-01-13 11:48] VITALS: BP 135/63
--- NOTE | 2019-01-13 14:42 | CARDIOLOGY PROGRESS NOTE ---
DATE: 01/13/2019 SUBJECTIVE: Mr. Mac denies any chest pain overnight. He has otherwise been doing well. PHYSICAL EXAMINATION: Vital signs: Patient is afebrile. Heart rate is 79, blood pressure 135/63. Generally: No acute distress. Cardiovascular: He sounds to be in a regular rate and rhythm with no murmurs. No S3. He has no lower extremity edema. Chest: Clear to auscultation bilaterally with no increased work of breathing. PERTINENT DATA: His chemistry was reviewed. His nuclear perfusion scan shows normal perfusion with the exception of a low-grade fixed defect in the base of the inferior wall suggestive of diaphragmatic attenuation. Ejection fraction of 65%. His echocardiogram was reviewed by me and seems to demonstrate normal pressure gradients across the bioprosthetic aortic valve. On some views in the short axis, there is a question of poor apposition of the valve to the left ventricular outflow tract. Assessment: 78yo old male with history of TAVR presenting with chest pain. Plan: I will contact the valve servic at [facility] and review this. It does not seem to result in a significant degree of aortic insufficiency. Otherwise, his ejection fraction appears normal. He does appear to have a very small pericardial effusion on this study but does not seem to present any sort of tamponade physiology. He could certainly follow up with Dr. Torrse, his primary microbiology teacher, as an outpatient for further review of this. Overall, there did not appear to be any clear etiology of his syncopal episode or his chest pain based on the evaluation that we did in the hospital. His mean gradient across the aortic valve was 16 with a peak of 34. cc: MD KVNG Ngo
--- NOTE | 2019-01-13 16:25 | ECHO REPORT ---
ORDER DATE: 01/12/2019 PROCEDURE: 2D echocardiogram. INTERPRETING PHYSICIAN: John Mays MD ECHOCARDIOGRAPHIC MEASUREMENTS: Interventricular septum 1.3 cm. Left ventricular posterior wall 1.2 cm. Diastolic diameter 4.6 cm. Systolic diameter 2.7 cm. Left atrium 3.9 cm. Aorta 4 cm. SUMMARY OF THE 2-DIMENSIONAL IMAGING: Pulmonic valve was normal. There is mild pulmonary regurgitation. Bioprosthetic valve in the aortic position was stable. Tricuspid valve was normal. Mitral valve leaflets were normal. There is mitral annular calcification. There is biatrial enlargement. Normal left ventricular cavity size. Estimated ejection fraction of 70%. There is diastolic dysfunction. Peak velocity across the aortic valve was 2.9 m/sec with a mean gradient of 16.7 mmHg with an aortic valve area by VTI of 1 cm2. In keeping with bioprosthetic valve, there was associated mild aortic regurgitation. There is mild tricuspid regurgitation. Peak velocity across the tricuspid valve was 3.3 m/sec. Pulmonary artery systolic pressure of 55 mmHg. There is no pericardial effusion or obvious intracardiac mass or thrombus seen. Anterior echo-free space suggestive of pericardial fat pad noted. cc: MD Sybil Childress PA
--- NOTE | 2019-01-14 04:38 | DISCHARGE SUMMARY ---
ADMISSION DATE: 01/12/2019 DISCHARGE DATE: 01/13/2019 FINAL DISCHARGE DIAGNOSES: 1. Atypical chest pain status post aortic valve replacement. 2. Dyslipidemia. 3. Chronic obstructive pulmonary disease. 4. Dementia. CONSULTATIONS: Cardiology consultation with Dr. Black. IMAGIN. Portable chest x-ray performed on 01/11/2019, which revealed emphysema. 2. Myocardial perfusion scan performed on 01/12/2019 that revealed an ejection fraction of 65%, as well as a low-grade fixed defect in the base of the inferior wall suggestive of diaphragmatic attenuation. HOSPITAL COURSE: Mr. Mac is a 78-year-old male with a history of aortic valve replacement, dyslipidemia and COPD who presented to the ER with a chief complaint of chest pain. The patient was admitted to the hospitalist service and placed on telemetry, serial cardiac enzymes were ordered and Cardiology was consulted given the patient's cardiac history. The patient's cardiac enzymes were noted to be negative and his EKGs did not show evidence of an acute ND. The patient was scheduled for a myocardial perfusion scan that was done on 01/12/2019, and it did not really reveal any evidence of ischemia. The following day the patient denied having any further chest pain or shortness of breath and stated that he felt that he was back to baseline. The patient also had an echocardiogram done that revealed an ejection fraction of 65%, as well as a small pericardial effusion that had no evidence of tamponade physiology. The patient was ultimately cleared for discharge home on 01/13/2019. DISCHARGE MEDICATIONS: 1. Norvasc 5 mg p.o. daily. 2. Aspirin 81 mg p.o. daily. 3. Lipitor 40 mg p.o. daily. 4. Aricept 10 mg p.o. daily. 5. Lyrica 50 mg p.o. daily. DISCHARGE DIET: Low-sodium, low-cholesterol diet. ACTIVITY: As tolerated. FOLLOW-UP INSTRUCTIONS: The patient will need to follow up with Dr. Torres in [place]. The patient will need to follow up with Dr. Hamida English in 2 weeks. cc: MD Hamida Cardoza MD
== END 2019-01-13 14:26 | disposition home or self-care (01) ==
LOC: ED 19:09 → EDIPHOLD 19:09 → SUATTDRO 01-12 00:43 → 3N 01-12 07:30
PROVIDERS: ATTEND Internal Medicine
CPT/HCPCS: 71020; 71046; 78452; 80048; 80053; 80061; 82550; 83721; 83880; 84484; 85025; 85610; 85730; 93005; 93017; 93306; 94640; 94761; 96374; 96375; 99285; A9270; A9500; J2270; J2405; J2785